=== PATIENT | female | born 1965 | race Caucasian/White ===

== ENCOUNTER 2019-12-20 10:27 | Outpatient (CLI) | payer BC, SELFPAY ==
[2019-12-20 11:44] LABS: Thyroid Stimulating Hormone 3.37 uIU/mL (0.36-3.74)
== END 2019-12-20 10:28 | disposition home or self-care (01) ==
LOC: CHSLAB 10:31
PROVIDERS: PCP Family Medicine; Visit Provider Family Medicine
DX: E03.9 Hypothyroidism, unspecified (principal)
CPT/HCPCS: 36415; 84443

== ENCOUNTER → 2020-07-08 10:10 | Outpatient (CLI) | payer BC, SELFPAY ==
--- NOTE | ~2020-07-08 | MM_ITS ---
EXAMINATION: MM screening traci BI w ángel HISTORY: Screening mammogram TECHNIQUE: Craniocaudal and mediolateral oblique 3-D tomosynthesis images were obtained and synthetic 2-D images were generated. Bilateral rotated lateral cc views. CAD analysis was submitted and interp reted. COMPARISON: 07/02/2019, 06/26/2018, 06/21/2017 bilateral digital screening mammogram examinations BREAST PARENCHYMAL COMPOSITION: The breasts are heterogeneously dense, which may obscure small masses . FINDINGS: Stable mild fibroglandular asymmetry. There is no evidence of suspicious mass, calcificatio n, or architectural distortion to suggest malignancy in either breast. There has been no suspicious i nterval change. IMPRESSION: 1. No mammographic evidence of malignancy. 2. Recommend routine screening mammography in one year. BI-RADS Category 2: Benign finding(s). Reviewed, dictated and finalized at location A.
--- NOTE | ~2020-07-08 | DEXA_ITS ---
Bone Density Report Name: Madelaine Mcgrath Age: 55 Sex: Female Ethnicity: White Date of : 1965 Indication: osteopenia; monitoring treatment; parental hip fracture; asthma or emphysema; postmenopausal Referring Provider: EL, AIDEE Study: Bone densitometry was performed. Exam Date: July 08, 2020 Accession number: [id number] Bone Density: Region BMD T-score Z-score Classification AP Spine (L1-L4) 1.086 0.4 1.5 Normal Femoral Neck (Left) 0.701 -1.3 -0.2 Osteopenia Total Hip (Left) 0.824 -1.0 -0.2 Normal Femoral Neck (Right) 0.681 -1.5 -0.4 Osteopenia Total Hip (Right) 0.779 -1.3 -0.6 Osteopenia Total Hip Mean 0.802 -1.2 -0.4 Osteopenia World Health Organization criteria for BMD impression classify patients as: Normal (T-score at or above -1.0), Osteopenia (T-score between -1.0 and -2.5), or Osteoporosis (T-score at or below -2.5). 10-year Fracture Risk: FRAX not reported because: Treated for osteoporosis Previous Exams: Region Exam Age BMD T-score BMD Change BMD Change Date g/cm2 vs Baseline vs Previous AP Spine(L1-L4) 07/08/2020 55 1.086 0.4 0.024* 0.024* 06/06/2016 50 1.063 0.1 Total Hip(Left) 07/08/2020 55 0.824 -1.0 -0.002 -0.002 06/06/2016 50 0.826 -0.9 Total Hip(Right) 07/08/2020 55 0.779 -1.3 -0.002 -0.002 06/06/2016 50 0.781 -1.3 *Denotes significance at 95% confidence level, LSC for AP Spine = 0.022 g/cm2, LSC for Total Hip = 0.027 g/cm2 Clinical Information Provided by Patient: Parent has had a hip fracture Smokes Is being treated for osteoporosis Has used the following medications: HRT (i.e. estrogen/hormone therapy), Vitamin D Has the following medical conditions: Asthma or Emphysema Patient maximum height was 66.5 Menopause Age: 50 No regular weight bearing exercise Drinks caffeinated beverages Onset of menses at age 14 Number of children 0 Impression: The patient has low bone mass, based on the Right Femoral Neck T-score. The patient has risk factors, including: parental hip fracture, smoking. No significant bone loss was observed. Discussion: PATIENT UNDER TREATMENT WITH NO SIGNIFICANT BMD LOSS SINCE LAST EXAM. In an untreated patient, BMD typically declines with age. A lack of decline or gain is usually a sign that treatment is efficacious and fracture risk is reduced. It is important to ask patients whether they are taking thei
== END ==
PROVIDERS: PCP Family Medicine; Visit Provider Nurse Practitioner
DX: Z12.31 Encounter for screening mammogram for malignant neoplasm of breast (principal); Z78.0 Asymptomatic menopausal state; M85.852 Other specified disorders of bone density and structure, left thigh; M85.851 Other specified disorders of bone density and structure, right thigh
CPT/HCPCS: 77063; 77067; 77080

== ENCOUNTER 2020-12-29 08:02 | Outpatient (CLI) | payer BC, SELFPAY | END 2020-12-29 08:03 | disposition home or self-care (01) | LOC: ANHCOVIDVC 08:02 | PROVIDERS: PCP Family Medicine | DX: Z23 Encounter for immunization (principal) | CPT/HCPCS: 0001A; 91300 ==

== ENCOUNTER 2021-01-19 07:57 | Outpatient (CLI) | payer BC, SELFPAY | END 2021-01-19 07:58 | disposition home or self-care (01) | LOC: ANHCOVIDVC 07:57 | PROVIDERS: PCP Family Medicine | DX: Z23 Encounter for immunization (principal) | CPT/HCPCS: 0002A; 91300 ==

== ENCOUNTER → 2021-07-09 09:52 | Outpatient (CLI) | payer BC, SELFPAY ==
--- NOTE | ~2021-07-09 | MM_ITS ---
EXAMINATION: MM screening traci BI w ángel HISTORY: Screening TECHNIQUE: Craniocaudal and mediolateral oblique 3-D tomosynthesis images were obtained and synthetic 2-D images were generated. CAD analysis was submitted and interpreted. COMPARISON: Comparison to multiple prior studies sequentially, with oldest reviewed study dated 06/06. BREAST PARENCHYMAL COMPOSITION: The breasts are heterogeneously dense, which may obscure small masses . FINDINGS: There is focal asymmetry with possible architectural distortion in the medial aspect of the right breast on CC view. The left breast is stable without evidence for malignancy. IMPRESSION: 1. Focal right breast asymmetry with possible architectural distortion, medial aspect of the right br east on CC view. 2. Additional mammographic views and possible breast ultrasound are recommended. BI-RADS Category 0: Incomplete: Needs additional imaging evaluation. Reviewed, dictated and finalized at location A. IMPRESSION: 1. Focal right breast asymmetry with possible architectural distortion, medial aspect of the right breast on CC view. 2. Additional mammographic views and possible breast ultrasound are recommended . BI-RADS Category 0: Incomplete: Needs additional imaging evaluation.
== END ==
PROVIDERS: PCP Family Medicine; Visit Provider Nurse Practitioner
DX: Z12.31 Encounter for screening mammogram for malignant neoplasm of breast (principal); R92.8 Other abnormal and inconclusive findings on diagnostic imaging of breast
CPT/HCPCS: 77063; 77067

== ENCOUNTER → 2021-07-09 09:53 | Outpatient (CLI) | payer BC, SELFPAY ==
--- NOTE | ~2021-07-09 | CT_ITS ---
EXAMINATION: CT lung screening DATE: 07/09/2021 10:43 INDICATION: Personal history of nicotine dependence, current smoker with 30 pack year history TECHNIQUE: Computed tomography (CT) of the chest was performed without intravenous contrast. The dose -length product (DLP) was 61.10 mGy-cm. Automated exposure control and iterative reconstruction techn ique were employed. COMPARISON: None FINDINGS: There is moderate emphysema. No suspicious pulmonary nodules are identified. The lungs are free of acute opacities. There is no pleural effusion or pneumothorax. No pathologically enlarged tho racic lymph nodes are identified. The heart size is normal. There is moderate thoracic spondylosis. IMPRESSION: 1. Lung-RADS category 1: Negative. Continue annual screening with noncontrast low-dose chest CT in 12 months. Reviewed, dictated and finalized at location A. IMPRESSION: 1. Lung-RADS category 1: Negative. Continue annual screening with noncontrast l ow-dose chest CT in 12 months.
== END ==
PROVIDERS: PCP Family Medicine; Visit Provider Family Medicine
DX: Z12.2 Encounter for screening for malignant neoplasm of respiratory organs (principal); Z87.891 Personal history of nicotine dependence
CPT/HCPCS: 71271

== ENCOUNTER → 2021-07-22 08:37 | Outpatient (CLI) | payer BC, SELFPAY ==
--- NOTE | ~2021-07-22 | MMUS_ITS ---
EXAMINATION: MM diagnostic traci RT w ángel, US breast RT complete HISTORY: Follow-up right breast asymmetry TECHNIQUE: Additional 3-D tomosynthesis images of the right breast were performed and synthetic 2-D i mages were generated. CAD analysis was submitted and interpreted. High resolution complete right terrell st ultrasound was performed. COMPARISON: 07/09/2021 BREAST PARENCHYMAL COMPOSITION: The breasts are heterogenously dense, which may obscure small masses FINDINGS: MAMMOGRAPHIC FINDINGS: There are no suspicious masses, calcifications or architectural distortion in the right breast to sug gest malignancy. ULTRASOUND: Complete right breast ultrasound: At 1:00, 5 cm from the nipple, there is a 3 mm cyst. No suspicious masses to suggest malignancy. IMPRESSION: 1. No evidence for malignancy in the right breast. 2. Routine yearly screening mammogram and regular clinical breast examination are recommended. BI-RADS Category 2: Benign finding(s). Reviewed, dictated and finalized at location A. IMPRESSION: 1. No evidence for malignancy in the right breast. 2. Routine yearly screening mammogram and regular clinical breast examination a re recommended. BI-RADS Category 2: Benign finding(s).
== END ==
PROVIDERS: Visit Provider Obstetrics & Gynecology Gynecology
DX: N60.01 Solitary cyst of right breast (principal)
CPT/HCPCS: 76641; 77061; 77065; G0279

== ENCOUNTER → 2022-07-13 09:47 | Outpatient (CLI) | payer OTHER, SELFPAY ==
--- NOTE | ~2022-07-13 | MM_ITS ---
EXAMINATION: MM screening [facility] BI w ángel HISTORY: Screening mammogram TECHNIQUE: Craniocaudal and mediolateral oblique 3-D tomosynthesis images were obtained and synthetic 2-D images were generated. CAD analysis was submitted and interpreted. COMPARISON: 07/22/2021, 07/09/2021, 07/08/2020 BREAST PARENCHYMAL COMPOSITION: There are scattered areas of fibroglandular density. FINDINGS: There is no suspicious mass, calcification, or architectural distortion to suggest malignan cy in either breast. There has been no suspicious interval change. IMPRESSION: 1. No mammographic evidence of malignancy. 2. Recommend routine screening mammography in one year. BI-RADS Category 1: Negative Reviewed, dictated and finalized at location D.
== END ==
PROVIDERS: PCP Family Medicine; Visit Provider Nurse Practitioner
DX: Z12.31 Encounter for screening mammogram for malignant neoplasm of breast (principal)
CPT/HCPCS: 77063; 77067

== ENCOUNTER 2022-07-28 08:29 | Outpatient (CLI) | payer OTHER, SELFPAY ==
--- NOTE | 2022-07-28 11:00 | NEURO_ITS ---
IMPRESSION: # Complains of numbness of hands.Pt is. Not diabetic. # Subtle left ulnar neuropathy across the elbow. # Normal needle exam. # Clincal correlation recommended Nerve Conduction Studies Anti Sensory Summary Table Stim Site NR Peak (ms) P-T Amp (?V) Site1 Site2 Delta-P (ms) Dist (cm) Maurice (m/s) Left Median Anti Sensory (2-3nd Digit) Wrist 3.4 33.9 Wrist 2-3nd Digit 3.4 14.0 41 Wrist 3.3 72.0 Wrist 2-3nd Digit 3.4 14.0 41 Right Median Anti Sensory (2-3nd Digit) Wrist 3.0 61.4 Wrist 2-3nd Digit 3.0 14.0 47 Wrist 3.2 44.8 Wrist 2-3nd Digit 3.0 14.0 47 Left Radial Anti Sensory (Base 1st Digit) Wrist 2.1 22.4 Wrist Base 1st Digit 2.1 0.0 Right Radial Anti Sensory (Base 1st Digit) Wrist 3.0 9.6 Wrist Base 1st Digit 3.0 0.0 Left Ulnar Anti Sensory (5th Digit) Wrist 2.8 97.5 Wrist 5th Digit 2.8 14.0 50 Right Ulnar Anti Sensory (5th Digit) Wrist 3.0 45.3 Wrist 5th Digit 3.0 14.0 47 Motor Summary Table Stim Site NR Onset (ms) O-P Amp (mV) Site1 Site2 Delta-0 (ms) Dist (cm) Maurice (m/s) Left Median Motor (Abd Poll Brev) Wrist 3.5 3.5 Elbow Wrist 4.5 27.0 60 Elbow 8.0 4.0 Right Median Motor (Abd Poll Brev) Wrist 3.4 3.6 Elbow Wrist 4.8 26.0 54 Elbow 8.2 3.5 Left Ulnar Motor (Abd Dig Minimi) Wrist 2.8 6.2 A Elbow Wrist 5.1 27.0 53 A Elbow 7.9 5.2 B Elbow Wrist 4.0 22.0 55 B Elbow 6.8 4.7 Right Ulnar Motor (Abd Dig Minimi) Wrist 3.3 6.8 A Elbow Wrist 4.8 27.0 56 A Elbow 8.1 6.2 F Wave Studies NR F-Lat (ms) L-R F-Lat (ms) Left Median (Mrkrs) (Abd Poll Brev) 28.91 0.86 Right Median (Mrkrs) (Abd Poll Brev) 28.05 0.86 Left Ulnar (Mrkrs) (Abd Dig Min) 29.83 3.74 Right Ulnar (Mrkrs) (Abd Dig Min) 26.09 3.74 EMG Side Muscle Nerve Root Ins Act Fibs Amp Dur Recrt Comment Right 1stDorInt Ulnar C8-T1 Nml Nml Nml Nml Nml Right Ext Indicis Radial (Post Int) C7-8 Nml Nml Nml Nml Nml Right Ext Digitorum Radial (Post Int) C7-8 Nml Nml Nml Nml Nml Right BrachioRad Radial C5-6 Nml Nml Nml Nml Nml Right PronatorTeres Median C6-7 Nml Nml Nml Nml Nml Right Abd Poll Brev Median C8-T1 Nml Nml Nml Nml Nml Left 1stDorInt Ulnar C8-T1 Nml Nml Nml Nml Nml Left Ext Indicis Radial (Post Int) C7-8 Nml Nml Nml Nml Nml Left Ext Digitorum Radial (Post Int) C7-8 Nml Nml Nml Nml Nml Left BrachioRad Radial C5-6 Nml Nml Nml Nml Nml Left PronatorTeres Median C6-7 Nml Nml Nml Nml Nml Left Abd Poll Brev Median C8-T1 Nml Nml Nml Nml Nml MTDD
== END 2022-07-28 08:30 | disposition home or self-care (01) ==
PROVIDERS: PCP Family Medicine; Visit Provider Family Medicine
DX: R25.2 Cramp and spasm (principal); G56.22 Lesion of ulnar nerve, left upper limb
CPT/HCPCS: 95886; 95911

== ENCOUNTER → 2022-09-01 10:54 | Outpatient (CLI) | payer OTHER, SELFPAY ==
--- NOTE | ~2022-09-01 | XR_ITS ---
EXAMINATION: XR chest 2V DATE: 09/01/2022 11:04 INDICATION: Pneumonia, unspecified TECHNIQUE: Frontal and lateral views of the chest are obtained COMPARISON: 07/25/2017 FINDINGS: The lungs are free of acute opacities. No pleural effusion or pneumothorax. The cardiomedia stinal silhouette is normal. There is moderate thoracic spondylosis. IMPRESSION: 1. No acute cardiopulmonary abnormality. Reviewed, dictated and finalized at location B. [employer]
== END ==
PROVIDERS: PCP Family Medicine; Visit Provider Family Medicine
DX: J18.9 Pneumonia, unspecified organism (principal)
CPT/HCPCS: 71046

== ENCOUNTER 2022-11-10 19:13 | Outpatient (NON) | payer OTHER, SELFPAY | END 2022-11-10 19:14 | disposition home or self-care (01) | LOC: ANHLAB 19:14 | PROVIDERS: PCP Family Medicine; Visit Provider Family Medicine | DX: Z22.322 Carrier or suspected carrier of Methicillin resistant Staphylococcus aureus (principal) | CPT/HCPCS: 87081 ==

== ENCOUNTER 2023-04-23 09:46 | Emergency (ER) | payer OTHER, SELFPAY ==
[2023-04-23 09:46] VITALS: BP 152/83; PULSE 100; RESP 18; TEMP 36.6; O2SAT 97
--- NOTE | 2023-04-23 09:59 | ED.SKABFB ---
HPI - Skin/Abscess/Foreign Bdy General Chief complaint: Skin/Abscess/Foreign Body Stated complaint: rash since monday Time Seen by Provider: 04/23/23 09:54 Source: patient and RN notes reviewed Mode of arrival: ambulatory Limitations: no limitations History of Present Illness complaint: rash Onset (ago): day(s) (4) Location: generalized Severity: moderate Quality: burning, dull and constant Pain Consistency: constant Relieving factors: none Exacerbating factors: none Context: none Associated symptoms: denies other symptoms Treatments prior to arrival: Benadryl (no help) Related Data Home Medications Medication Instructions Recorded Confirmed estradiol 1 mg-progesterone 100 mg 1 cap PO QPM 08/16/22 04/23/23 capsule multivitamin with minerals-folic 1 tablet PO DAILY 08/16/22 04/23/23 acid 200 mcg chewable tablet (Multivitamin Gummies) Allergies Allergy/AdvReac Type Severity Reaction Status Date / Time doxycycline Allergy Unknown Nausea Verified 11/10/22 10:53 varenicline [From Chantix] AdvReac Intermediate weight gain Verified 11/10/22 10:53 Review of Systems Review of Systems: All systems reviewed & are unremarkable except as noted in HPI and below PMFSH Past Medical History Medical History Allergic contact dermatitis, unspecified cause (02/19/19) Allergies Muscle cramps Pre-syncope Spasm of right piriformis muscle Torsion of ovary, ovarian pedicle and fallopian tube Surgical History Surgical History History of elbow surgery Dr Augustin [address] of hand surgery [address] Augustin 2014 History of repair of left rotator cuff Dr Justice 2015 Family History Family History Mother Dementia Alzheimer disease Father Dementia Social History Social History Smoking packs per day: 0.5 Smoking cigarettes per day: 10.0 Years smoked: 30 Smoking pack-years: 15.00 Smoking status: Current every day smoker Alcohol intake: never Substance use type: does not use Lack of Transportation: No Lack of Food: Never True Current Housing: I Have Housing Concerned About Future Housing: No Difficulty Paying Gas/Electric Bills: No Difficulty Paying for Meds: No Currently Unemployed: No Education: High School Diploma/GED Difficulty w/ Childcare or Family Care: No Living arrangements: with family Occupation/Education: occupation 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 Exam Const: General: healthy appearing, no acute distress and alert Nutritional Appearance: well nourished Orientation/consciousness: patient oriented x3 Limitations: no limitations HENMT: Head: normal to inspection Ears: external ears normal Face/Nose/Sinus: Normal external nose present Face and sinus: normal facial exam Mouth: Yes moist mucous membranes Eyes: Conjunctivae: conjunctivae normal Pupils: Equal, round and reactive pupils present EOM: EOMs intact bilaterally Neck: Neck: normal visual inspection Resp: Effort & Inspection: normal respiratory effort Auscultation: clear to auscultation bilaterally Cardio: Rate: regular rate Rhythm: regular rhythm GI: Auscultation: normal bowel sounds Back/Spine/Pelvis: Cervical Spine: cervical ROM normal Thoracic/Lumbar Spine: thoraco-lumbar ROM normal Skin: General skin exam: normal color Rashes: rashes noted vesicles diffuse multiple locations arrangement linear, color red and morphology Neuro: General: patient oriented x3, moves all extremities, no focal motor deficits and CN's II-XI intact bilaterally Speech: normal speech Gait exam (Neuro): Normal gait present Extrem: General: normal to inspection and no clubbing, cyanosis or edema Psych: Mental Status: mental status grossly normal Affect: normal affe
[2023-04-23] MEDS: methylPREDNISolone SOD SUCC 125 MG VIAL IM (10:16)
[2023-04-23 10:24] VITALS: BP 113/76; PULSE 73; RESP 20; O2SAT 96
== END 2023-04-23 10:25 | disposition home or self-care (01) ==
PROVIDERS: Emergency Provider Emergency Medicine; PCP Family Medicine
DX: L23.7 Allergic contact dermatitis due to plants, except food (principal); F17.210 Nicotine dependence, cigarettes, uncomplicated
CPT/HCPCS: 96372; 99283; J2930

== ENCOUNTER → 2023-07-18 10:17 | Outpatient (CLI) | payer OTHER, SELFPAY ==
--- NOTE | ~2023-07-18 | MM_ITS ---
EXAMINATION: MM screening traci BI w ángel HISTORY: Screening mammogram TECHNIQUE: Craniocaudal and mediolateral oblique 3-D tomosynthesis images were obtained and synthetic 2-D images were generated. CAD analysis was submitted and interpreted. COMPARISON: 07/13/2022 bilateral screening mammogram 07/22/2021 diagnostic right mammogram and complete right breast ultrasound 07/09/2021, 07/08/2020 bilateral screening mammogram examinations BREAST PARENCHYMAL COMPOSITION: The breasts are heterogeneously dense, which may obscure small masses . FINDINGS: There is no evidence of suspicious mass, calcification, or architectural distortion to sugg est malignancy in either breast. There has been no suspicious interval change. IMPRESSION: 1. No mammographic evidence of malignancy. 2. Recommend routine screening mammography in one year. BI-RADS Category 1: Negative Reviewed, dictated and finalized at location A.
== END ==
PROVIDERS: PCP Family Medicine; Visit Provider Advanced Practice Midwife
DX: Z12.31 Encounter for screening mammogram for malignant neoplasm of breast (principal)
CPT/HCPCS: 77063; 77067

== ENCOUNTER → 2023-08-10 10:45 | Outpatient (CLI) | payer OTHER, SELFPAY ==
--- NOTE | ~2023-08-10 | DEXA_ITS ---
Bone Density Report Name: RAHEEL BURKETT Age: 58 Sex: Female Ethnicity: White Date of : 1965 Indication: osteopenia; parental hip fracture; height loss; asthma or emphysema; postmenopausal Referring Provider: LIZA LEWIS Study: Bone densitometry was performed. Exam Date: August 10, 2023 Accession number: [id number] Bone Density: Region BMD T-score Z-score Classification AP Spine (L1-L4) 1.094 0.4 1.8 Normal Femoral Neck (Left) 0.752 -0.9 0.4 Normal Total Hip (Left) 0.846 -0.8 0.1 Normal Femoral Neck (Right) 0.680 -1.5 -0.3 Osteopenia Total Hip (Right) 0.779 -1.3 -0.4 Osteopenia Total Hip Mean 0.813 -1.1 -0.2 Osteopenia World Health Organization criteria for BMD impression classify patients as: Normal (T-score at or above -1.0), Osteopenia (T-score between -1.0 and -2.5), or Osteoporosis (T-score at or below -2.5). 10-year Fracture Risk(1): Major Osteoporotic Fracture 15% Hip Fracture 1.2% Reported Risk Factors: [place] (), Neck BMD=0.680, BMI=27.1, parental fracture, smoking (1) FRAX(R) Version 3.08. Fracture probability calculated for an untreated patient. Fracture probability may be lower if the patient has received treatment. Previous Exams: Region Exam Age BMD T-score BMD Change BMD Change Date g/cm2 vs Baseline vs Previous AP Spine(L1-L4) 08/10/2023 58 1.094 0.4 0.032* 0.008 07/08/2020 55 1.086 0.4 0.024* 0.024* 06/06/2016 50 1.063 0.1 Total Hip(Left) 08/10/2023 58 0.846 -0.8 0.019 0.022 07/08/2020 55 0.824 -1.0 -0.002 -0.002 06/06/2016 50 0.826 -0.9 Total Hip(Right) 08/10/2023 58 0.779 -1.3 -0.002 0.000 07/08/2020 55 0.779 -1.3 -0.002 -0.002 06/06/2016 50 0.781 -1.3 *Denotes significance at 95% confidence level, LSC for AP Spine = 0.022 g/cm2, LSC for Total Hip = 0.027 g/cm2 Clinical Information Provided by Patient: Parent has had a hip fracture Smokes Has used the following medications: HRT (i.e. estrogen/hormone therapy), Vitamin D, Calcium, ALBUTEROL, TYROID MEDICATION Has the following medical conditions: Asthma or Emphysema Patient maximum height was 66.5 Menopause Age: 50 No regular weight bearing exercise Drinks caffeinated beverages Onset of menses at age 14 Number of children 0 Impression: The patient has low bone mass, based on t
== END ==
PROVIDERS: PCP Family Medicine; Visit Provider Advanced Practice Midwife
DX: M85.89 Other specified disorders of bone density and structure, multiple sites (principal); Z78.0 Asymptomatic menopausal state
CPT/HCPCS: 77080

== ENCOUNTER 2024-05-23 08:07 | Outpatient (CLI) | payer OTHER, SELFPAY ==
--- NOTE | ~2024-05-23 | MR_ITS ---
EXAMINATION: MR hip RT wo con DATE: 05/23/2024 09:16 INDICATION: Right hip pain. TECHNIQUE: Magnetic resonance imaging (MRI) of the right hip was performed without intravenous contra st. COMPARISON: Right hip radiographs 05/20/2024 FINDINGS: Bones/cartilage: There is 4 degrees levocurvature of lumbar spine. The femoral head/neck morphologies are normal. The hips demonstrate tiny osteophytes. Small [id number] images of right hip demonstrates partial-thick ness cartilage loss, deep anteriorly. There are subchondral cysts in the anterior right acetabulum. Labrum: There is a tear of right glenoid labrum anteriorly. Fluid: There is a right hip joint effusion. There is mild bilateral trochanteric bursitis. Soft tissues: There is mild tendinopathy of the hamstring origins bilaterally. The iliopsoas tendons are normal. Th e gluteal tendons are intact. IMPRESSION: 1. Moderate right hip chondrosis. Right acetabular labral tear. 2. Right hip joint effusion. Reviewed, dictated and finalized at location A.
== END 2024-05-23 08:08 ==
LOC: GOSHIMG 08:08
PROVIDERS: PCP Physician Assistant Surgical; Visit Provider Physician Assistant Surgical
DX: M25.451 Effusion, right hip (principal)
CPT/HCPCS: 73721

== ENCOUNTER 2024-07-01 13:04 | Outpatient (CLI) | payer OTHER, SELFPAY ==
--- NOTE | ~2024-07-01 | CT_ITS ---
EXAMINATION: CT lung screening DATE: 07/01/2024 13:26 INDICATION: screenng TECHNIQUE: Computed tomography (CT) of the chest was performed without intravenous contrast. Addition al 3D reconstructions utilizing coronal maximum intensity projection (MIP) were performed. Automated exposure control and iterative reconstruction technique were employed. The dose-length product was 65 .01 mGy-cm. COMPARISON: 07/09/2021 FINDINGS: Calcified nodule at the anterobasilar left lower lobe consistent with old granulomatous disease. No o ther suspicious pulmonary nodules, pneumonia, pulmonary edema or pleural effusion. Heart size is norm al. Small pericardial effusion. Thoracic aorta is normal in caliber. No pathologically enlarged thora cic lymphadenopathy. 6 mm nonobstructing stone at the upper pole of the right kidney. Visualized uppe r abdomen is otherwise unremarkable. Moderate thoracic spondylosis. IMPRESSION: 1. Lung-RADS category 1: Negative. Continue annual screening with noncontrast low-dose chest CT in 12 months. Reviewed, dictated and finalized at location B. IMPRESSION: 1. Lung-RADS category 1: Negative. Continue annual screening with noncontrast l ow-dose chest CT in 12 months.
== END 2024-07-01 13:05 | disposition home or self-care (01) ==
LOC: MICIMG 13:05
PROVIDERS: PCP Family Medicine; Visit Provider Family Medicine
DX: Z12.2 Encounter for screening for malignant neoplasm of respiratory organs (principal); F17.210 Nicotine dependence, cigarettes, uncomplicated
CPT/HCPCS: 71271

== ENCOUNTER 2024-07-02 14:27 | Outpatient (CLI) | payer OTHER, SELFPAY ==
--- NOTE | ~2024-07-02 | US_ITS ---
EXAMINATION: US arterial ankle brachial ind DATE: 07/02/2024 15:21 INDICATION: Tingling and numbness of the feet. Nicotine dependence, unspecified, uncomplicated. TECHNIQUE: Segmental pressures and plethysmographic and Doppler waveforms of the brachial and lower e xtremity arteries were obtained. COMPARISON: None. FINDINGS: Right and left brachial artery pressures of 97 mm Hg and 106 mm Hg, respectively, are concordant (nor mal difference <= 30 mmHg). The right ankle-brachial index (BRAD) is 1.41 (normal >= 0.9-1.0). The right great toe-brachial index (TBI) is 0.94 (normal >= 0.65). Arterial Doppler waveforms are biphasic at the ankle. The left BRAD is 1.30. The left TBI is 0.96. Arterial Doppler waveforms are biphasic at the ankle. IMPRESSION: 1. No significant arterial occlusive disease. Reviewed, dictated and finalized at location A.
== END 2024-07-02 14:28 | disposition home or self-care (01) ==
PROVIDERS: PCP Family Medicine; Visit Provider Family Medicine
DX: R09.89 Other specified symptoms and signs involving the circulatory and respiratory systems (principal); F17.200 Nicotine dependence, unspecified, uncomplicated; M79.606 Pain in leg, unspecified
CPT/HCPCS: 93922

== ENCOUNTER 2024-07-23 09:57 | Outpatient (CLI) | payer OTHER, SELFPAY ==
--- NOTE | ~2024-07-23 | MM_ITS ---
EXAMINATION: MM screening traci BI w ángel HISTORY: Screening TECHNIQUE: Craniocaudal and mediolateral oblique 3-D tomosynthesis images were obtained and synthetic 2-D images were generated. CAD analysis was submitted and interpreted. COMPARISON: Comparison to multiple prior studies sequentially, with oldest reviewed study dated 07/02. BREAST PARENCHYMAL COMPOSITION: Dense: The breasts are heterogeneously dense, which may obscure small masses FINDINGS: There is no evidence of suspicious mass, calcification, or architectural distortion to sugg est malignancy in either breast. There has been no suspicious interval change. IMPRESSION: 1. No mammographic evidence of malignancy. 2. Recommend routine screening mammography in one year. BI-RADS Category 1: Negative Reviewed, dictated and finalized at location B.
== END 2024-07-23 09:58 | disposition home or self-care (01) ==
LOC: MICIMG 09:58
PROVIDERS: PCP Family Medicine; Visit Provider Family Medicine
DX: Z12.31 Encounter for screening mammogram for malignant neoplasm of breast (principal)
CPT/HCPCS: 77063; 77067

== ENCOUNTER 2024-08-01 09:45 | Outpatient (CLI) | payer OTHER, SELFPAY ==
--- NOTE | 2024-08-01 10:46 | ECG_ITS ---
Test Date: 2024-08-01 10:55:05 Measurements Intervals [place] Rate: 69 P: 6 TN: 139 QRS: 50 QRSD: 76 T: 52 QT: 397 QTc: 427 Interpretive Statements SINUS RHYTHM WITHIN NORMAL LIMITS No previous ECG available for comparison Electronically Signed On 08-01-2024 16:07:11 CDT by Erasmo Calderon M.D.
[2024-08-01 11:07] LABS: Basophils Absolute Auto 0.1 K/mm3 (0.0-0.1); Basophils Percent Auto 1.3 % (0.2-1.2); Eosinophils Absolute Auto 0.3 K/mm3 (0-0.3); Eosinophils Percent Auto 4.7 % (0-4.4); Hematocrit 39.6 % (37.0-47.0); Hemoglobin 13.5 g/dL (12.0-15.0); Immature Granulocyte Absolute 0.02 K/mm3 (0.00-0.031); Immature Granulocyte Percent A 0.3 % (0-0.5); Lymphocytes Absolute Auto 2.22 K/mm3 (0.9-3.2); Lymphocytes Percent Auto 32.9 % (18.3-44.2); Mean Corpuscular HGB Conc 34.1 g/dl (32-36); Mean Corpuscular Hemoglobin 31.3 pg (26-34); Mean Corpuscular Volume 91.7 fl (80-100); Mean Platelet Volume 9.3 fl (7.4-10.4); Monocytes Absolute Auto 0.5 K/mm3 (0.1-0.6); Monocytes Percent Auto 7.6 % (2.6-8.5); Neutrophils Absolute Auto 3.6 K/mm3 (1.3-6.7); Neutrophils Percent Auto 53.2 % (45.5-73.1); Platelet Count Result 303 k/mm3 (150-375); Red Blood Count 4.32 M/mm3 (4.2-5.4); Red Cell Distribution Width 12.3 % (11.5-14.5); White Blood Count 6.8 K/mm3 (4.5-10.0)
[2024-08-01 11:16] LABS: Albumin Level 4.1 g/dL (3.5-5.1); Anion Gap 7 mmol/L (4-12); Blood Urea Nitrogen 12 mg/dL (7-17); Calcium 9.1 mg/dL (8.4-10.2); Carbon Dioxide 29 mmol/L (22-30); Chloride 104 mmol/L (98-107); Estimated Glomerular Filt Rate > 60; Glucose 83 mg/dL (65-110); Potassium 4.3 mmol/L (3.4-5.0); Sodium 140 mmol/L (137-145)
[2024-08-01 11:19] LABS: Urine Cotinine NEGATIVE
[2024-08-01 12:06] LABS: Hemoglobin A1C 5.3 % (<5.7)
== END 2024-08-01 09:46 | disposition home or self-care (01) ==
LOC: ANHSURGERY 09:50
PROVIDERS: PCP Family Medicine; Visit Provider Orthopaedic Surgery
DX: M16.11 Unilateral primary osteoarthritis, right hip (principal); Z01.818 Encounter for other preprocedural examination
CPT/HCPCS: 80048; 80307; 82040; 83036; 85025; 86850; 86900; 86901; 87081; 93005

== ENCOUNTER 2024-08-06 07:11 | Outpatient (CLI) | payer OTHER, SELFPAY ==
--- NOTE | ~2024-08-06 | NM_ITS ---
EXAMINATION: NM robi stress w perfusion DATE: 08/06/2024 09:11 INDICATION: Emphysema. Nicotine dependence. TECHNIQUE: Rest images were obtained following intravenous administration of 11 mCi Tc99m tetrofosmin (Myoview). The patient was infused intravenously with Lexiscan (Regadenoson). Then, 35 mCi Tc99m tet rofosmin (Myoview) was administered intravenously, and stress images were obtained. Data was reconstr ucted into short axis and horizontal and vertical long axis SPECT images. Gated SPECT images were als o obtained. COMPARISON: None. FINDINGS: There is no definite reversible or fixed perfusion abnormality to suggest ischemia or infar ction. There is normal left ventricular chamber size, wall motion and ejection fraction. Left ventr icular ejection fraction measures >70%. IMPRESSION: 1. Normal myocardial perfusion at rest and during stress. 2. Left ventricular ejection fraction measuring >70%. Reviewed, dictated and finalized at location A.
--- NOTE | 2024-08-06 07:59 | EST_ITS ---
Patient Info Name: Madelaine Mcgrath Age: 59 years : 1965 Gender: Female Ht: 66 in Wt: 165 lbs BSA: 1.88 m2 HR: 75 bpm BP: 146 / 86 mmHg Heart Rhythm: Sinus Rhythm Exam Date: 08/06/2024 8:28 AM Exam Location: Echo Lab Patient Status: Outpatient Admit Date: 08/06/2024 Staff Ordering Physician: oFzia Salazar MD Attending Provider: Fozia Salazar MD Exercise Technologist: Breanna Rousseau CT Exercise Physician: Pepe Fisher DO Exam Type: CA stress robi w NM Study Info Indications R06.02 - Shortness of breath Z01.810 - Encounter for preprocedural cardiovascular examination A regadenoson stress test was performed. Summary 1. 1. Negative lexiscan stress test for ischemic ST changes by ECG criteria. 2. 2. Stable hemodynamics throughout the test. 3. 3. Nuclear scan to follow and will be reported separately. Please correlate with it. 4. 4. Patient informed of the above results. Protocol: Lexiscan Stress ECG Details Stage: REST Duration (min): 0 min : 57 sec HR (bpm): 79 SBP (mmHg): 128 DBP (mmHg): 90 Stage: REST Duration (min): 6 min : 9 sec HR (bpm): 80 SBP (mmHg): 128 DBP (mmHg): 90 Stage: STAGE 1 Duration (min): 0 min : 59 sec HR (bpm): 119 SBP (mmHg): 149 DBP (mmHg): 86 Stage: RECOVERY Duration (min): 1 min : 0 sec HR (bpm): 109 SBP (mmHg): 149 DBP (mmHg): 86 Stage: RECOVERY Duration (min): 2 min : 0 sec HR (bpm): 106 SBP (mmHg): 149 DBP (mmHg): 86 Stage: RECOVERY Duration (min): 3 min : 0 sec HR (bpm): 96 SBP (mmHg): 135 DBP (mmHg): 83 Stage: RECOVERY Duration (min): 3 min : 24 sec HR (bpm): 101 SBP (mmHg): 135 DBP (mmHg): 83 Stage: RECOVERY Duration (min): 4 min : 0 sec HR (bpm): --- SBP (mmHg): 135 DBP (mmHg): 83 Stage: RECOVERY Duration (min): 5 min : 0 sec HR (bpm): --- SBP (mmHg): 135 DBP (mmHg): 83 Stage: RECOVERY Duration (min): 5 min : 16 sec HR (bpm): --- SBP (mmHg): 135 DBP (mmHg): 83 Rest HR: 80 bpm Peak HR: 120 bpm Rest Sys BP: 128 mmHg Peak Sys BP: 149 mmHg Max Pred HR: 160 bpm % Max Pred HR: 75 % Target HR: 136 bpm Max RPP: 17,880 bpm*mmHg Termination Reason: Completed protocol Cardiac Symptoms: Shortness of breath Total Time: 1 min : 0 sec Rest [place] BP: 90 mmHg Peak [place] BP: 86 mmHg Total Dose: 0.4 mg Resting ECG Sinus rhythm. Stress ECG No ST changes. Arrhythmias None. Report Signatures
== END 2024-08-06 07:12 | disposition home or self-care (01) ==
LOC: ANHCARD 07:14
PROVIDERS: PCP Family Medicine; Visit Provider Family Medicine
DX: J43.9 Emphysema, unspecified (principal); F17.200 Nicotine dependence, unspecified, uncomplicated; Z01.818 Encounter for other preprocedural examination
CPT/HCPCS: 78452; 93017; A9502; J2785

== ENCOUNTER 2024-08-12 01:26 | Day surgery (SDC) | payer OTHER, SELFPAY ==
[2024-08-01 09:54] VITALS: BMI 26.6
--- NOTE | 2024-08-01 10:25 | PC.NURSE ---
Report to the Outpatient Waiting Room, entrance under the green pavilion located off [facility], at time __6 am on date _08/12/24 . Planned Procedure Time: _7:30 am .? Time changes happen often and if your time is changed the preop area will call you the afternoon before. - You and your visitor will be asked to self-screen and do not enter if you have any COVID symptoms. Please call surgeon if you need to reschedule. - A mask is optional within the hospital at this time. Patients may have clear liquids (water, carbonated beverages, clear teas, apple juice) until 3 hours prior to surgery ( 4:30 am)with a maximum of 20 ounces. - No food from midnight until time of surgery and no smoking - Infants may have breast milk until 4 hours before surgery, infant formula 6 hours prior to surgery. - Children will be allowed to drink immediately following surgery.? If applicable, please bring a bottle or sippy cup to assist with drinking. Juice, water, soda, and popsicles are readily available.? For infants on formula, please bring formula the day of surgery.? Pacifiers are allowed. Take only the following medications with a SIP of water on the morning of surgery: inhaler if needed,gabapentin,levothyroxine DO NOT STOP ANY OF YOUR OTHER PRESCRIPTION MEDICATIONS PRIOR TO SURGERY EXCEPT THE FOLLOWING Medications to discontinue per physician ____hold diclofenac 7 days pre op per dr merino last dose 08/04/24 . hold all vitamins and supplements 3 days pre op.last dose08/08/24 Please no make-up, nail andorran, hairspray, perfume, deodorant, or body powder the day of surgery.? No jewelry (including any body piercings) or valuables the day of surgery, leave them at home.? Please take a shower or bath the night before, or the morning of, surgery with an antibacterial soap.? Wear comfortable, loose fitting clothing.? Children are encouraged to wear pajamas. - Jewelry must be removed prior to entering the operating room.? Rings and piercings that are not removed may be cut off. - The hospital will not accept responsibility for valuables.? - Please leave all valuables, including medications, at home the day of surgery. If you are going home after surgery, a licensed ambulance driver must drive you home.? - NO public transportation without another adult if you receive anesthesia. - We recommend that an adult stay with you for 24 hours following discharge. - We also recommend that you do not drive, make important decision, drink alcoholic beverages, or take any drugs that were not prescribed by your health care provider for at least 24 hours after your discharge time. Follow any additional instructions given to you from your surgeon. verbal and written instructions given to __PATIENT and asked if any additional questions and then verbalized understanding. Patient advised to call surgeon office or pre surgery nurse liaison [phone] if any additional questions.
[2024-08-01 10:44] VITALS: BP 133/88; PULSE 83; RESP 18; TEMP 36.7; O2SAT 100
--- NOTE | 2024-08-09 08:32 | PM.IMHP ---
H&P: HPI History of Present Illness Date/Time: 08/09/24 08:32 Chief Complaint: Right hip DJD Narrative: 59-year-old female patient of Dr. Salazar who presents today for a right anterior total hip arthroplasty. Patient started having symptoms in her hip in April of this year. She was climbing into a jeep when she felt a pop in her hip. Since that time she has had continued symptoms in the right hip predominantly in the groin especially with weight-bearing or activities. She did use a walker for short period of time she has been on diclofenac 75 mg b.i.d.. This is not improved her symptoms. She has had an MRI scan of the right hip which demonstrated prominent subchondral cyst in the anterior superior acetabulum and diffuse bony edema around the cyst. She also has high grade cartilage loss in the hip itself. At this point patient has failed conservative measures to try to improve the symptoms in her right hip. Total hip arthroplasty was discussed with her and she feels that her symptoms are severe enough that she would like to proceed with that. Review of Systems Review of Systems: All systems reviewed & are unremarkable except as noted in HPI and below PMFSH Past Medical History Medical History Actinic keratosis Allergic contact dermatitis, unspecified cause (02/19/19) Allergies Autoimmune thyroiditis (07/04/19) Cellulitis of pubic region MRSA MRSA (methicillin resistant staph aureus) culture positive Muscle wasting and atrophy, not elsewhere classified, unspecified hand Pneumonia Pre-syncope Spasm of right piriformis muscle Torsion of ovary, ovarian pedicle and fallopian tube Surgical History Surgical History History of elbow surgery Dr Augustin [address] surgery [address] Augustin 2014 History of repair of left rotator cuff Dr Justice 2015 Family History Family History Mother Dementia Alzheimer disease Father Dementia Sibling No problems noted. Social History Social History (Updated 07/24/24 @ 07:49 by Laina Aguilar CMA) Smoking packs per day: 0.5 Smoking cigarettes per day: 10.0 Years smoked: 43 Smoking pack-years: 21.50 Smoking status: Former smoker Tobacco type: cigarettes Second hand tobacco smoke exposure: Yes Smoking end date: 07/01/24 Additional smoking assessment comments: DENIES ANY FORM OF TOBACCO USE Alcohol intake: never Substance use: never Substance use type: does not use Do You Feel Safe in your Home?: Yes Lack of Transportation: No Lack of Food: Never True Current Housing: I Have Housing Concerned About Future Housing: No Difficulty Paying Gas/Electric Bills: No Difficulty Paying for Meds: No Currently Unemployed: YES Education: High School Diploma/GED Difficulty w/ Childcare or Family Care: No Living arrangements: with family Occupation/Education: retired 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[employer] Gender identity (if verbalized by the patient): Female Spiritual care concerns: No Meds Home Medications and Allergies Home Medications Medication Instructions Recorded Confirmed Type multivitamin with minerals-folic 1 tablet PO DAILY 08/16/22 08/01/24 History acid 200 mcg chewable tablet (Multivitamin Gummies) albuterol sulfate 90 mcg/actuation See Rx Instructions .Route 08/14/23 08/01/24 Rx aerosol inhaler .COMPLEX #90 grams omeprazole 40 mg capsule,delayed 40 mg PO DAILY #90 caps 02/22/24 08/01/24 Rx release levothyroxine 75 mcg tablet 75 mcg PO DAILY #90 tabs 05/20/24 08/01/24 Rx cholecalciferol (vitamin D3) 125 125 mcg PO DAILY 06/27/24 08/01/24 History mcg (5,000 unit) capsule gabapentin 300 mg capsule See Rx Instructions PO QHS #90 caps 06/27/24 08/01/24 Rx dicl
[2024-08-12] VITALS (15 sets, daily range): BP systolic 94–128; BP diastolic 50–76; PULSE 82–109; RESP 12–20; TEMP 35.8–36.9; O2SAT 93–100
--- NOTE | ~2024-08-12 | XR_ITS ---
Indication: Right total hip arthroplasty TECHNIQUE: Fluoroscopy used during right total hip arthroplasty performed by [Griselda Briones]. No fluoroscopic images captured. 61 seconds of fluoroscopy. FINDINGS: Correlate with procedure note. IMPRESSION: Fluoroscopy used during right total hip arthroplasty. Reviewed, dictated and finalized at location B.
--- NOTE | ~2024-08-12 | XR_ITS ---
EXAMINATION: XR hip RT 1V w AP pelvis DATE: 08/12/2024 11:11 INDICATION: Right hip arthroplasty TECHNIQUE: 2 views right hip FINDINGS: There is a right total hip arthroplasty in expected position. Subcutaneous gas with soft t issue swelling are consistent with recent surgery. There is osteonecrosis of the left femoral head. IMPRESSION: 1. Recent right total hip arthroplasty. 2: Osteonecrosis of the left femoral head. Reviewed, dictated and finalized at location B.
[2024-08-12] MEDS: ACETAMINOPHEN 500 MG TABLET 1000 MG PO (06:30)
[2024-08-12] MEDS: TRANEXAMIC ACID 1,000MG/ISO100 1,000 MG/100 ML BAG 200 MG IVPB (06:35)
[2024-08-12] MEDS: VANCOMYCIN 1,000 MG/NS 250 ML BAG 250 MG IVPB (06:35)
[2024-08-12] MEDS: LACTATED RINGERS 1,000 ML 30 ML IV CONT ×2 (06:35→11:10)
--- NOTE | 2024-08-12 06:55 | WPDANESEPPF ---
Anes - Initial Pre Proc Eval Procedure: Operation Date: 08/12/24 07:30 Proposed Procedures p Right Total Hip Arthroplasty, Direct Anterior Approach - Chao Haley MD Date/Time: 08/12/24 06:55 Surgeon: Chao Haley MD Pre Op Diagnosis: OA right hip Patient Data Age: 59 Gender: F Height: 1.68 m Weight: 75 kg Last Vital Signs Temp 97.8 F 08/12/24 06:15 Pulse 102 H 08/12/24 06:15 Resp 16 08/12/24 06:15 BP 95/68 L 08/12/24 06:15 Pulse Ox 98 08/12/24 06:15 O2 Del Method Room Air 08/12/24 06:15 Allergies Allergy/AdvReac Type Severity Reaction Status Date / Time No Known Allergies Allergy Verified 08/12/24 06:46 Home Medications Medication Instructions Recorded Confirmed Type multivitamin with minerals-folic 1 tablet PO DAILY 08/16/22 08/01/24 History acid 200 mcg chewable tablet (Multivitamin Gummies) albuterol sulfate 90 mcg/actuation See Rx Instructions .Route 08/14/23 08/01/24 Rx aerosol inhaler .COMPLEX #90 grams omeprazole 40 mg capsule,delayed 40 mg PO DAILY #90 caps 02/22/24 08/01/24 Rx release levothyroxine 75 mcg tablet 75 mcg PO DAILY #90 tabs 05/20/24 08/01/24 Rx cholecalciferol (vitamin D3) 125 125 mcg PO DAILY 06/27/24 08/01/24 History mcg (5,000 unit) capsule gabapentin 300 mg capsule See Rx Instructions PO QHS #90 caps 06/27/24 08/01/24 Rx diclofenac sodium 75 mg 75 mg PO BID #60 tabs 07/24/24 08/01/24 Rx tablet,delayed release hydrocodone 7.5 mg-acetaminophen 1 tablet PO Q4H PRN pain #20 tabs 08/09/24 Rx 325 mg tablet Patient hx anesthesia problems: none Family hx anesthesia problems: none Results Review: All pre-operative results and documents have been reviewed as part of the pre-operative evaluation. [facility] Past Medical History Medical History Actinic keratosis Allergic contact dermatitis, unspecified cause (02/19/19) Allergies Autoimmune thyroiditis (07/04/19) Cellulitis of pubic region MRSA MRSA (methicillin resistant staph aureus) culture positive Muscle wasting and atrophy, not elsewhere classified, unspecified hand Pneumonia Pre-syncope Spasm of right piriformis muscle Torsion of ovary, ovarian pedicle and fallopian tube Surgical History Surgical History History of elbow surgery Dr Augustin [address] Augustin 2013 History of repair of left rotator cuff Dr Justice 2015 Family History Family History Mother Dementia Alzheimer disease Father Dementia Sibling No problems noted. Social History Social History Smoking packs per day: 0.5 Smoking cigarettes per day: 10.0 Years smoked: 43 Smoking pack-years: 21.50 Smoking status: Former smoker Tobacco type: cigarettes Second hand tobacco smoke exposure: Yes Smoking end date: 07/01/24 Additional smoking assessment comments: DENIES ANY FORM OF TOBACCO USE Alcohol intake: never Substance use: never Substance use type: does not use Do You Feel Safe in your Home?: Yes Lack of Transportation: No Lack of Food: Never True Current Housing: I Have Housing Concerned About Future Housing: No Difficulty Paying Gas/Electric Bills: No Difficulty Paying for Meds: No Currently Unemployed: YES Education: High School Diploma/GED Difficulty w/ Childcare or Family Care: No Living arrangements: with family Occupation/Education: retired 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
--- NOTE | 2024-08-12 07:18 | WPDHPUPDATE1 ---
History and Physical Update Update Date/Time: 08/12/24 07:18 History and Physical has been reviewed, including an updated exam of the patient. There are NO changes in the patient's condition. Risks, benefits, and alternatives have been discussed and questions answered. Patient agrees to proceed with procedure.
[2024-08-12] MEDS: ceFAZolin 2 GM/D5W 50 ML 2 GM/50 ML BAG IVPB ×3 (07:30→22:45)
[2024-08-12] MEDS: SODIUM CHLORIDE 0.9% IV 37.7 ML, MORPHINE SULFATE INJ (*CRX) 2 MG, ROPivacaine HCL 1% 2... INFILTRATE (08:20)
[2024-08-12] MEDS: ceFAZolin SODIUM 1 GM VIAL 3 GM (09:01)
[2024-08-12] MEDS: TRANEXAMIC ACID 1,000 MG/10 ML AMPUL 1000 MG IV PUSH (10:56)
[2024-08-12] MEDS: ceFAZolin SODIUM 1 GM VIAL 2 GM IV PUSH (10:57)
[2024-08-12] MEDS: KETOROLAC 15 MG/ML VIAL (*BKC) IV PUSH ×2 (11:02→17:27)
--- NOTE | 2024-08-12 11:20 | PM.OP ---
Procedure Note - Brief Procedure Note - Brief Date of procedure: 08/12/24 OA right hip Procedure performed: Right anterior total hip arthroplasty Surgeon: RASHAD Ware Findings: 59-year-old female who underwent right anterior total hip arthroplasty on 08/12. I was involved procedure including positioning patient on the OR table and 1st assisting through the time surgery. Total time spent was 3-1/2 hours
--- NOTE | 2024-08-12 11:22 | W.PM.PROC2 ---
Procedure Note - Detailed Date of Procedure 08/12/24 Pre-op Diagnosis OA right hip Post-op Diagnosis Same Procedure Performed Right total hip arthroplasty Surgeon Chao Haley MD Supervisor [employer] Anesthesia General Description of Procedure Patient was brought to the operating room and general anesthesia was administered. She received weight based vancomycin 2 g of Ancef 1 g of TXA preoperatively. Padding was placed on the feet in the boots applied and the patient transferred to the OSI [place] table and the right hip prepped draped usual fashion. SCDs on both legs running during the procedure. A 10 cm longitudinal incision was made starting 3 cm lateral to the ASIS. Dissection was carried down to fascia over the tensor fascia izabela which was longitudinally incised elevated off the anterior 50% of the TFL muscle. Interval between TFL and rectus femoris developed crossing branches of ascending lateral femoral circumflex vessels were isolated ligated with suture divided. Retractor was placed anteromedial to the capsule. The hip abducted internally rotated and the gluteus minimus elevated off the lateral capsule. Inverted T capsulotomy was performed and femoral neck osteotomy made according to preoperative templating. The femoral head was removed. It measured 44.5 mm in diameter. It had diffuse fissuring and chondromalacia. Acetabulum was exposed labrum excised. The leg was externally rotated extended and small portion of the lateral capsular flap resected and release of lateral capsule from the Cell completed. The saddle was exposed but we did not need to split the interval between conjoined tendon and piriformis as we had adequate exposure. With the leg back in the horizontal position, the acetabulum was exposed. We medialized with a 44 Reamer and reamed to 47 mm which gave for full contact. We reamed to 48 and chose the emphasis 48 mm cup. This was inserted but unfortunately would not seat the last few mm. We reamed again with a 48 this time to the for the acetabulum and this time the 48 mm cup could be seated and it seated fully. The anterior rim of the cup was a mm under the anterior rim of the acetabulum and the posterior superior rim about 5 mm proud to the acetabular rim. Excellent Press-Fit was achieved. A single screw placed in the ilium and the S 36 mm inner diameter liner seated fully without difficulty. Bone quality was very good. She did have more than the average amount of bleeding from the acetabular surface however. With the liner fully seated bleeding ceased cup was placed at 40? of abduction and anteversion matching the anatomy. The femur was externally rotated extended using the table hook for elevation and we broached to a size 5. Intraoperative x-ray showed we were just a few mm longer than her preoperative templated plan. We calcar planed. The 5 had wiggle. We countersunk 3 mm and went up to a size 6 which we seated to the same depth. This had no torsional play. Intraoperative x-ray showed that we had the same leg length as preop which was our goal with the +5 and appropriate soft tissue tension. This matched our preoperative templating exactly. We calcar planed once again and placed the size 6 standard offset Actis stem which seated fully. No cracks noted in the calcar. Fixation seem solid on the stem. We trialed 1 more time with a +5 and has had appropriate stability but ample Shuck and we placed the +5 ceramic by 36 mm head onto the clean dry trunnion after thorough irrigation of the wound with antibiotic solution. Hip was reduced stability reconfirmed. Superior limb the capsulotomy approximated with 2. Vicryl stitch. Fascia closed with 1. Running Vicryl drain in the subcu skin closed with 2 subcutaneous Vicryl and glue. Two additional g of Ancef 1 g of TXA given time wound closure. The Cell Saver person estimated total blood loss at 1800 cc which seem to far exceed my impression of the blood loss which was more th
[2024-08-12] MEDS: fentaNYL CITRATE INJ (*CRX) 100 MCG/2 ML VIAL 25 MCG IV PUSH ×4 (11:25→12:08)
[2024-08-12] MEDS: ACETAMINOPHEN 325 MG TABLET 650 MG PO ×3 (12:48→20:34)
[2024-08-12] MEDS: SODIUM CHLORIDE 0.9% IV 1,000 ML 125 ML IV CONT (12:48)
[2024-08-12 13:24] LABS: Hematocrit 35.5 % (37.0-47.0); Hemoglobin 11.7 g/dL (12.0-15.0)
[2024-08-12] MEDS: SENNA/DOCUSATE SODIUM TABLET 2 TAB PO (17:21)
[2024-08-12] MEDS: ONDANSETRON INJ 4 MG/2 ML VIAL IV PUSH (17:28)
[2024-08-12] MEDS: VANCOMYCIN 1,000 MG/NS 250 ML 1,000 MG/250 ML BAG 250 MG IVPB (18:29)
[2024-08-12] MEDS: LACTATED RINGERS 500 ML 999 ML IV CONT (18:37)
[2024-08-12] MEDS: FAMOTIDINE 20 MG TABLET PO (20:34)
[2024-08-13] MEDS: ACETAMINOPHEN 325 MG TABLET 650 MG PO ×2 (00:49→05:32)
[2024-08-13] MEDS: oxyCODONE HCL (*CRX) 5 MG TAB IR PO (00:54)
[2024-08-13 04:46] VITALS: BP 109/55; PULSE 104; RESP 18; TEMP 36.4; O2SAT 100
[2024-08-13 05:02] LABS: Basophils Percent Auto 0.2 % (0.2-1.2); Hematocrit 27.8 % (37.0-47.0); Hemoglobin 9.3 g/dL (12.0-15.0); Immature Granulocyte Absolute 0.12 K/mm3 (0.00-0.031); Immature Granulocyte Percent A 0.6 % (0-0.5); Lymphocytes Absolute Auto 1.58 K/mm3 (0.9-3.2); Lymphocytes Percent Auto 8.5 % (18.3-44.2); Mean Corpuscular HGB Conc 33.5 g/dl (32-36); Mean Corpuscular Hemoglobin 31.1 pg (26-34); Mean Platelet Volume 9.9 fl (7.4-10.4); Monocytes Absolute Auto 1.4 K/mm3 (0.1-0.6); Monocytes Percent Auto 7.6 % (2.6-8.5); Neutrophils Absolute Auto 15.4 K/mm3 (1.3-6.7); Neutrophils Percent Auto 83.1 % (45.5-73.1); Platelet Count Result 197 k/mm3 (150-375); Red Blood Count 2.99 M/mm3 (4.2-5.4); Red Cell Distribution Width 12.7 % (11.5-14.5); White Blood Count 18.6 K/mm3 (4.5-10.0)
[2024-08-13 05:18] LABS: Anion Gap 3 mmol/L (4-12); Blood Urea Nitrogen 11 mg/dL (7-17); Calcium 8.5 mg/dL (8.4-10.2); Carbon Dioxide 26 mmol/L (22-30); Chloride 109 mmol/L (98-107); Estimated CRCL calculation 69 ml/min; Estimated Glomerular Filt Rate > 60; Glucose 121 mg/dL (65-110); Potassium 4.5 mmol/L (3.4-5.0); Sodium 138 mmol/L (137-145)
[2024-08-13] MEDS: LEVOTHYROXINE SODIUM 75 MCG TABLET PO (05:32)
[2024-08-13] MEDS: VANCOMYCIN 1,000 MG/NS 250 ML 1,000 MG/250 ML BAG 250 MG IVPB (05:34)
[2024-08-13 05:44] VITALS: PULSE 91
[2024-08-13] MEDS: MORPHINE SULFATE (*CRX) 2 MG/ML INJ IV PUSH (05:46)
--- NOTE | 2024-08-13 06:42 | PM.PNORT ---
Subjective Subjective Date/Time Seen: 08/13/24 06:42 Interval history: Postop day 1 patient is alert. She has been afebrile. Blood pressure systolic has been in the 110s. She has been slightly tachycardic. Hemoglobin 9.3. Patient is having no symptoms from the lower hemoglobin. She is having no lightheadedness when she gets up. She has been up multiple times overnight to the restroom and urinating frequently and a lot she states. Drains been removed. Dressing is dry and intact. Neurovascularly she is intact. She feels that the oxycodone does not work for her and requested hydrocodone for pain control. Overall pain is very mild. This was switched the morning of postop day 1. Patient was up walking yesterday with physical therapy and has been very comfortable and overall doing very well. We will plan have the patient work with therapy this morning and if she continues to do well she will be discharged home later this morning. Objective Data Vital Signs Vital Signs: Vital Signs - 24 hr 08/12/24 11:10 08/12/24 11:15 08/12/24 11:30 Temperature 98.5 F Pulse Rate 100 101 H 103 H Respiratory Rate 12 12 16 Blood Pressure 128/65 112/64 115/76 Pulse Oximetry 100 100 98 Oxygen Delivery Simple Face Mask Simple Face Mask Room Air Oxygen Flow Rate 8 8 08/12/24 11:45 08/12/24 12:00 08/12/24 12:12 Temperature 96.8 F L Pulse Rate 100 88 91 Respiratory Rate 15 12 14 Blood Pressure 115/76 96/75 L 102/51 L Pulse Oximetry 96 96 98 Oxygen Delivery Room Air Room Air Oxygen Flow Rate 08/12/24 12:27 08/12/24 12:57 08/12/24 13:44 Temperature 96.8 F L 96.4 F L Pulse Rate 87 82 Respiratory Rate 14 14 Blood Pressure 96/56 L 99/53 L Pulse Oximetry 93 93 Oxygen Delivery Room Air Oxygen Flow Rate 08/12/24 14:10 08/12/24 14:43 08/12/24 13:57 Temperature 96.5 F L Pulse Rate 98 Respiratory Rate 14 Blood Pressure 94/60 L Pulse Oximetry 98 Oxygen Delivery Room Air Room Air Oxygen Flow Rate 08/12/24 17:57 08/12/24 19:36 08/12/24 19:37 Temperature 98.1 F 98.1 F Pulse Rate 85 88 107 H Respiratory Rate 16 18 18 Blood Pressure 94/60 L 103/50 L 95/68 L Pulse Oximetry 100 95 95 Oxygen Delivery Oxygen Flow Rate 08/12/24 19:37 08/12/24 20:05 08/12/24 23:55 Temperature 98.1 F 98.1 F 97.7 F Pulse Rate 103 H 104 H 109 H Respiratory Rate 18 18 20 Blood Pressure 111/51 L 97/58 L 102/53 L Pulse Oximetry 96 93 98 Oxygen Delivery Oxygen Flow Rate 08/12/24 20:35 08/13/24 04:46 08/13/24 05:44 Temperature 97.5 F L Pulse Rate 104 H 91 Respiratory Rate 18 Blood Pressure 109/55 L Pulse Oximetry 100 Oxygen Delivery Room Air Oxygen Flow Rate Intake/Output Intake/Output: Intake & Output 08/10/24 08/11/24 08/12/24 08/13/24 23:59 23:59 23:59 23:59 Intake Total 2140 Balance 2140 Meds/Results Medications: Active Medications Generic Name Dose Route Start Last Admin Trade Name Freq PRN Reason Stop Dose Admin Hydrocodone Bitart/Acetaminophen 1 tab 08/13/24 06:40 Hydrocodone/Acetaminophen (*Crx) 7.5-325 Mg Tablet PO Q4H ZANDRA Albuterol 2 puff 08/12/24 12:12 Albuterol Sulfate (*Sp) Aerosol 1 Puff INHALATION Q4H PRN SOB/WHEEZING Apixaban 2.5 mg 08/13/24 09:00 Apixaban 2.5 Mg Tablet PO Q12HR [facility] Cefdinir 300 mg 08/13/24 12:00 Cefdinir 300 Mg Capsule PO Q12HR ZANDRA Celecoxib 200 mg 08/13/24 09:00 Celecoxib 200 Mg Capsule PO DAILY ZANDRA Famotidine 20 mg 08/12/24 21:00 08/12/24 20:34 Famotidine 20 Mg Tablet PO 20 mg Q12HR ZANDRA Administration Sodium Chloride 1,000 mls @ 125 mls/hr 08/12/24 12:12 08/12/24 22:30 Normal Saline Iv IV CONT Infused .Q8H ZANDRA Infusion Cefazolin Sodium 2 gm in 50 mls @ 100 mls/hr 08/12/24 15:00 08/12/24 23:15 Ancef 2 Gm/D5w 50 Ml IVPB 08/13/24 07:29 Infused Q8H ZANDRA Infusion Vancomycin HCl 1,000 mg in 250 mls @ 250 mls/hr 08/12/
[2024-08-13] MEDS: ceFAZolin 2 GM/D5W 50 ML 2 GM/50 ML BAG IVPB (06:44)
--- NOTE | 2024-08-13 06:51 | PM.DS ---
DS: Admitting Diagnosis Discharge Date 08/13 Admitting Diagnosis Right hip DJD DS: Discharge Diagnosis Discharge Diagnosis (1) Hip arthritis: Code(s): M16.10 - Unilateral primary osteoarthritis, unspecified hip Status: Acute DS: Summary Hospital Course Hospital Course: 59-year-old female who underwent right anterior total hip arthroplasty on 08/12. Underwent the procedure without complications. Postoperatively she has been afebrile vital signs have been stable. Patient's blood pressure has been on the lower side through surgery as well as postoperatively. This seems to be her baseline. She is having no symptoms from the lower blood pressure as far as getting up and feeling lightheaded or dizzy. Morning of postop day 1 patient was alert and comfortable. She felt that the oxycodone were not helping with her pain control. She was taking hydrocodone prior to surgery because she was taken off her diclofenac and this seemed to work better so we have switched her to the hydrocodone 7.5 mg q.4 hours p.r.n.. I have switched her Tylenol to 500 mg every 6 hours due to the hydrocodone having Tylenol in it. Patient was comfortable the morning of postop day 1. Drain was removed. Incision was dry and intact. Neurovascularly she is intact. She was up walking with therapy the day of surgery has been comfortable and eager to go home. Hemoglobin the morning of postop day 1 was 9.3. Patient has been making plenty of urine. She will be discharged home on 08/13. Patient is weight-bearing as tolerated. She will go home with a 10 day course of Omnicef due to her history of recently quitting smoking. She also go home with a 10 day course of Celebrex 200 mg. She will go home with Senokot and MiraLax as well. Patient was advised to keep leg elevated home prevent swelling. She may use a cane or walker depending on her comfort level. She was advised any questions or concerns she is to the office otherwise we will see her at her appointments. Time Spent with Patient Time attestation: Total time spent providing and/or coordinating discharge services: DS: Data Data Completed and Pending Labs on day of discharge: Labs from last 24 hours 08/13/24 08/12/24 04:29 13:18 WBC 18.6 H RBC 2.99 L Hgb 9.3 L 11.7 L Hct 27.8 L 35.5 L MCV 93.0 MCH 31.1 MCHC 33.5 RDW 12.7 Plt Count 197 MPV 9.9 Immature Gran % (Auto) 0.6 H Neut % (Auto) 83.1 H Lymph % (Auto) 8.5 L [place] % (Auto) 7.6 Eos % (Auto) 0.0 Baso % (Auto) 0.2 Lymph # (Auto) 1.58 [place] # (Auto) 1.4 H Eos # (Auto) 0.0 Baso # (Auto) 0.0 Abs Immat Gran (auto) 0.12 H Absolute Neuts (auto) 15.4 H Absolute Nucleated RBC 0.000 Nucleated RBC % 0.0 Sodium 138 Potassium 4.5 Chloride 109 H Carbon Dioxide 26 Anion Gap 3 L BUN 11 Creatinine 0.70 Estim Creat Clear Calc 69 Estimated GFR > 60 Glucose 121 H Calcium 8.5 Discharge Plan Discharge Patient Disposition: Home, Self-Care Discharge Instructions: ИРИНА HORAN M.D [facility] [address] [place] [address] [address] [place] [address] POST-OPERATIVE DISCHARGE INSTRUCTIONS ANTERIOR TOTAL HIP ARTHROPLASTY 1. Move toes/feet up and down every hour while awake. 2. Be up walking every hour while awake. 3. Use walker realtime captioner if instructed to use walker realtime captioner.When you are allowed to use the cane, use the cane in the opposite hand. 4. When resting, do not rest in the chair. Rather, lie on your back, with back flat, and the leg elevated above heart to minimize swelling. You may put a pillow under your head. Do not rest in a chair. Resting in the chair results in swelling in the leg. Significant swelling could indicate a blood clot and if this occurs, call the office (or go to the ER) to have a venous ultrasound performed. Its ok to sit in the chair to eat and use the toilet and to receive a guest but sitting in a chair w
[2024-08-13] MEDS: SENNA/DOCUSATE SODIUM TABLET 2 TAB PO (08:09)
[2024-08-13] MEDS: APIXABAN 2.5 MG TABLET PO (08:09)
[2024-08-13] MEDS: HYDROcodone/acetaminophen (*CRX) 7.5-325 MG TABLET 1 TAB PO (08:09)
[2024-08-13] MEDS: FAMOTIDINE 20 MG TABLET PO (08:09)
[2024-08-13] MEDS: polyethylene glycoL 3350 17 GM POWD.PACK PO (08:10)
[2024-08-13] MEDS: CELECOXIB 200 MG CAPSULE PO (08:10)
[2024-08-13] MEDS: CHOLECALCIFEROL 5,000 UNITS TABLET 5000 UNITS BY MOUTH (08:10)
== END 2024-08-13 10:15 | disposition home or self-care (01) ==
LOC: ANHSURGERY 05:57 → ANH2MED 12:17
PROVIDERS: Physician Assistant Surgical; PCP Family Medicine; Visit Provider Orthopaedic Surgery
PROC: (CPT 27130; principal; 2024-08-12 07:30)
DX: M16.11 Unilateral primary osteoarthritis, right hip (principal); L57.0 Actinic keratosis; Z79.51 Long term (current) use of inhaled steroids; Z79.891 Long term (current) use of opiate analgesic; Z98.890 Other specified postprocedural states; Z87.891 Personal history of nicotine dependence
CPT/HCPCS: 27130; 36415; 73501; 80048; 80307; 82040; 83036; 85014; 85018; 85025; 86850; 86900; 86901; 87081; 93005; 97110; 97161; 97165; 97530; 97535; 99199; A9270; C1713; C1776; J0171; J0330; J0690; J1100; J1171; J1885; J2003; J2250; J2270; J2371; J2405; J2704; J2795; J3010; J3370; J7030; J7120

== ENCOUNTER 2024-10-22 10:11 | Outpatient (CLI) | payer OTHER, SELFPAY ==
--- NOTE | ~2024-10-22 | XR_ITS ---
Cervical Spine: AP, lateral, open-mouth views Clinical History: Pain Findings: The normal lordotic curve is maintained. No fracture or subluxation seen. There is moderate to advanced degenerative disc narrowing at C5-C6 and C6-C7. Minimal facet arthropathy present in the cervical spine.. Pre-vertebral soft tissues are unremarkable. Impression: Degenerative change as above, especially at C5-C6 and C6-C7. Reviewed, dictated and finalized at [facility]. [employer]OR CASE MANAGEMENT Impression: Degenerative change as above, especially at C5-C6 and C6-C7.
--- NOTE | ~2024-10-22 | XR_ITS ---
Lumbosacral Spine: AP and lateral views Clinical History: Pain Findings: The normal lordotic curve is maintained. The vertebral bodies and posterior elements are i ntact. The intervertebral disc spaces are preserved. There is moderate facet arthropathy lower lumba r spine. The sacroiliac joints are normally outlined. Impression: Facet arthropathy, as above. Reviewed, dictated and finalized at location . [facility] Impression: Facet arthropathy, as above.
== END 2024-10-22 10:12 | disposition home or self-care (01) ==
PROVIDERS: PCP Family Medicine; Visit Provider Student in an Organized Health Care Education/Training Program
DX: R20.0 Anesthesia of skin (principal); R20.2 Paresthesia of skin
CPT/HCPCS: 72040; 72100

== ENCOUNTER 2024-10-29 08:50 | Outpatient (RCR) | payer OTHER, SELFPAY ==
--- NOTE | 2024-10-29 10:17 | OPREHPOC ---
Outpatient Therapy Plan of Care This is a Multidisciplinary Plan of Care that may contain components documented by all disciplines (PT, OT, and ST.) PT Problem 1 PT Problem #1 Knowledge Deficit PT Goal 1 Goal / Goal Update 1. independent and compliant with HEP Target Visit 6 PT Problem 2 PT Problem #2 Pain PT Goal 1 Goal / Goal Update 1. patient to report no pain in either hip 2. no pain in the lower back Target Visit 12 PT Problem 3 PT Problem #3 Impaired Range of Motion PT Goal 1 Goal / Goal Update 1. 20 degrees or better active lumbar extension Target Visit 12 PT Problem 4 PT Problem #4 Impaired Strength PT Goal 1 Goal / Goal Update 1. 4+/5 bilateral hip strength overall 2. 5/5 bilateral knee strength Target Visit 12 PT Problem 5 PT Problem #5 Impaired Functional Mobility PT Goal 1 Goal / Goal Update 1. patient to ambulate 30 minutes without rest or fatigue reports 2. patient to sleep through the night without bilateral hip or lower back pain 3. patient to ambulate with normal gait mechanics Target Visit 12
--- NOTE | 2024-10-29 10:17 | PTOPEVAL1 ---
Assessment and note entered by JT File, PT Evaluation Information Assessment Status Evaluation ICD-10 Condition Codes (PT) Pain in low back M54.50,Pain in right hip M25.551, Pain in left hip M25.552 Onset 08/12/24 Subjective Information patient reports she fractured her R hip in March of last year. she reports she ended up not seeing a surgeon or MD until May. she then had R KAYLEEN on 08/12/24. since surgery, she has been having lower back pain, L lateral hip pain, and R hip pain. she reports she is easily worn out with walking. she reports she is not big on exercising on her own. she reports she is going out of town next week, and will be doing a lot of walking. she reports she also has pain in the R hip with laying down. she did not have any therapy after the surgery. Reported Pain Level Pain Score 3,3,0: Self Report Assessment PT Clinical Summary mrs. oakes is a 59 yo woman who presents to skilled PT services for evaluation and treatment of bilateral hip and lower back pain. she presents today with signs and symptoms of residual weakness of the R hip from KAYLEEN, bilateral greater trochanteric bursitis, and lumbar stenosis. she would benefit from continued skilled PT services to improve her bilateral LE strength, gait mechanics, and functional endurance to return to prior level activities and improve her quality of life. Plan of Care Interventions Electrical Stimulation,Gait Training,Hot Pack/Cold Pack,Manual Therapy,Neuro Re-education,Patient/ Caregiver Education,Therapeutic Activities, Therapeutic Exercise PT Services Indicated Yes Treatment Frequency and 3x weekly for 12 visits Duration These treatments will address the objective and functional deficits as defined above. The patient will be advanced safely and appropriately in order for the patient to progress towards his/her prior level of function. Additional exercises will be introduced and as well as a comprehensive home exercise program upon discharge, if needed, ?to ensure carryover of functional gains achieved in the clinic. This treatment plan has been reviewed and agreement upon by the patient.
== END 2025-01-27 23:59 | disposition home or self-care (01) ==
LOC: CHSPT 08:50
PROVIDERS: Visit Provider Physician Assistant Surgical
DX: M25.552 Pain in left hip (principal); M54.50 Low back pain, unspecified; Z96.641 Presence of right artificial hip joint
CPT/HCPCS: 97014; 97110; 97140; 97161; G0283

== ENCOUNTER 2024-12-16 08:10 | Outpatient (CLI) | payer OTHER, SELFPAY ==
--- NOTE | ~2024-12-16 | MR_ITS ---
EXAMINATION: MR lumbar spine wo con DATE: 12/16/2024 09:05 INDICATION: Polyneuropathy. Worsening numbness and tingling to the bilateral lower extremities. TECHNIQUE: Magnetic resonance imaging (MRI) of the lumbar spine was performed without intravenous con trast. Sequences included sagittal T2-weighted FSE, sagittal T2-weighted FS FSE, sagittal T1-weighted FSE, and axial T2-weighted FSE. COMPARISON: None FINDINGS: 2 mm retrolisthesis L3 on L4, L4 on L5 and L5 on S1. Vertebral body heights are normal. Normal marro w signal. Minimal disc height loss at L3-L4 and L4-L5. The conus medullaris terminates at L1-L2. Ther e is normal signal in the caudal spinal cord. Paravertebral soft tissues are unremarkable. The follow ing disc levels are specifically discussed: T12-L1: The disc does not extend beyond the endplate margin. There is mild bilateral facet joint oste oarthritis. There is no neural foraminal stenosis. There is no central canal stenosis. L1-L2: The disc does not extend beyond the endplate margin. There is mild bilateral facet joint osteo arthritis. There is no neural foraminal stenosis. There is no central canal stenosis. L2-L3: The disc does not extend beyond the endplate margin. There is mild to moderate bilateral facet joint osteoarthritis. There is no neural foraminal stenosis. There is no central canal stenosis. L3-L4: Disc is mildly bulging. There is mild to moderate bilateral facet joint osteoarthritis. There is mild bilateral neural foraminal stenosis. There is minimal central canal stenosis. L4-L5: Disc is mildly bulging. There is mild to moderate bilateral facet joint osteoarthritis. There is mild bilateral neural foraminal stenosis. There is minimal central canal stenosis. L5-S1: Disc is mildly bulging. There is mild to moderate bilateral facet joint osteoarthritis. There is mild bilateral neural foraminal stenosis. There is normal central canal stenosis. IMPRESSION: 1. Mild lumbar spondylosis. Reviewed, dictated and finalized at location B. ENRICHMENT SPECIALIST IMPRESSION: 1. Mild lumbar spondylosis.
--- NOTE | ~2024-12-16 | MR_ITS ---
EXAMINATION: MR cervical spine wo con DATE: 12/16/2024 08:56 INDICATION: Worsening chronic numbness and tingling of skin at the bilateral extremities. Polyneuropa thy. TECHNIQUE: Magnetic resonance imaging (MRI) of the cervical spine was performed without intravenous c ontrast. Sequences included sagittal T2-weighted FSE, sagittal T2-weighted FS FSE, sagittal T1-weight ed FSE, axial MERGE and axial T2-weighted FSE. COMPARISON: None FINDINGS: Straightening of the normal cervical lordosis. 2 mm retrolisthesis C5 on C6 and C6 on C7. Vertebral body heights are normal. Severe disc height loss with associated mild fibrovascular degenerative endp late changes at C5-C6 and C6-C7 and low signal intensity Modic type III sclerotic endplate changes at C6-C7. Bone marrow signal is otherwise normal. Mild disc height loss at C3-C4 and mild to moderate d isc height loss at C4-C5 with annular fissures at both levels. There is focal minimal increased signa l of the cord at the level of C4-C5 where there is a large disc extrusion resulting in severe central canal stenosis which will be further detailed below. Cervical soft tissues are unremarkable. The fol lowing disc levels are specifically discussed: C2-C3: The disc does not extend beyond the endplate margin. There is mild right uncovertebral joint o steoarthritis. There is mild bilateral facet joint osteoarthritis. There is no neural foraminal steno sis. There is no central canal stenosis. C3-C4: Annular fissure and moderate size central disc extrusion with disc material extending 2 mm bel ow level of the superior endplate of C4. There is mild bilateral uncovertebral joint osteoarthritis. There is moderate left and mild to moderate right facet joint osteoarthritis. There is mild bilateral neural foraminal stenosis. There is moderate central canal stenosis which measures 7 mm AP in the mi d sagittal plane with the disc extrusion indenting the ventral surface of the cord. There is compensa tory left to right widening of the cord. C4-C5: Annular fissure with large disc extrusion which measures 8 mm left to right, 7 mm AP and 11 mm craniocaudally. This results in severe central canal stenosis measuring 4 mm AP in the mid sagittal plane and deforming the cord which is widened [id number] and with central prominent indention of t he ventral surface of the cord. There is mild bilateral uncovertebral joint osteoarthritis. There is minimal bilateral facet joint osteoarthritis. There is mild bilateral neural foraminal stenosis. C5-C6: Disc is bulging. There is moderate right and severe left uncovertebral joint osteoarthritis. T here is mild left and minimal right facet joint osteoarthritis. There is mild right and moderate left neural foraminal stenosis. There is mild to moderate central canal stenosis measuring 7 mm AP in the mid sagittal plane and with flattening of the ventral surface of the cord which is mildly widened le ft to right. C6-C7: Disc is bulging. There is moderate right and severe left uncovertebral joint osteoarthritis. T here is minimal bilateral facet joint osteoarthritis. There is moderate bilateral neural foraminal st enosis. There is moderate central canal stenosis which measures 67 cm AP in the mid sagittal plane wi th mild indentation of the ventral surface of the cord which is mildly widened left right. C7-T1: The disc does not extend beyond the endplate margin. There is no uncovertebral joint osteoarth ritis. There is mild bilateral facet joint osteoarthritis. There is no neural foraminal stenosis. The re is no central canal stenosis. IMPRESSION: 1. Severe cervical spondylosis most notable for a large disc extrusion at C4-C5 which contributes to severe central canal stenosis with focal minimal increased cord signal at this level. Would recommend neurosurgical consultation. Reviewed, dictated and finalized at location B. NICAL TRAINER IMPRESSION: 1. Severe cervical spondylosis most notable for a large disc extrusion at C4-C5 which contributes to severe central canal stenosis with focal minimal increase d cord signal at this level. Would recommend neurosurgical consultation.
== END 2024-12-16 08:11 | disposition home or self-care (01) ==
PROVIDERS: PCP Family Medicine; Visit Provider Family Medicine
DX: M43.06 Spondylolysis, lumbar region (principal); M43.02 Spondylolysis, cervical region
CPT/HCPCS: 72141; 72148

== ENCOUNTER 2025-02-24 02:54 | Emergency (ER) | payer OTHER, SELFPAY ==
[2025-02-24] VITALS (10 sets, daily range): BP systolic 112–144; BP diastolic 60–85; PULSE 96–108; RESP 11–20; TEMP 36.6; O2SAT 89–96
--- NOTE | ~2025-02-24 | CT_ITS ---
Clinical Indication: Chest pain, shortness of breath CT Scan of the Chest with Contrast: Technique: Contiguous sections were acquired throughout the chest after intravenous administration of 100 cc of Omnipaque 350. Dose reduction technique was used on this scan by utilizing automated expos ure control and iterative reconstruction technique. The dose-length product (DLP) was 193.70 mGy-cm. COMPARISON: 07/01/2024 Findings: There is ill-defined soft tissue infiltration in the left neck, which could reflect recent surgical change. There is no evidence of any significant mediastinal, hilar or axillary lymphadenopathy. There is exte nsive pulmonary embolus involving the right main pulmonary artery, extending into all 3 lobar level r ight-sided pulmonary arteries as well as smaller emboli in more distal segmental branches, especially in the right middle and lower lobes. There is less extensive pulmonary embolus in the left pulmonary arterial tree, with involvement of the left lower lobar pulmonary artery as well as segmental level branches in the left upper and lower lobes. No definite evidence of right heart strain. There is no e vidence of aortic dissection or aneurysm. No pericardial effusion. Minimal pleural effusion present. No right pleural effusion.. Probable minimal dependent atelectatic changes. Images through the upper abdomen reveal no abnormalities. Impression: Extensive pulmonary emboli, right side worse than left, as detailed above. No definite evidence of ri ght heart strain. Minimal left pleural effusion. Findings compatible with recent surgical intervention the left neck. Correlate with surgical history. Reviewed, dictated and finalized at [facility]. Impression: Extensive pulmonary emboli, right side worse than left, as detailed above. No d efinite evidence of right heart strain. Minimal left pleural effusion. Findings compatible with recent surgical intervention the left neck. Correlate with surgical history.
--- OUTSIDE RECORDS SUMMARY | 2025-02-24 02:56 | XMS_ITS ---
Author Organization [facility] Address [address] [facility] [address] [place] [address] Care Team Providers Care Passenger Relations Representative Name Role Phone Fozia Salazar Primary Care Provider Erasmo De Jesus Unavailable [phone] PROBLEMS Problem Type ICD Code Onset Dates Problem Status W/U Status Risk SNOMED Code Notes Problem Cervical radiculitis (M54.12) Active confirmed Cervical radiculitis (85427614) Encounters Encounter Location Date Provider Diagnosis [facility] - Inpatient [address] [place] [address] 02/17/2025 Erasmo Benton PLAN OF TREATMENT Next Appt Details Provider Name:Erasmo Cohen ot, 03/03/2025 11:00:00 AM, [address], [facility] [address], [place], [address],
--- OUTSIDE RECORDS SUMMARY | 2025-02-24 02:56 | XMS_ITS ---
Author Organization [facility] Address [address] [facility] [address] [place] [address] Care Team Providers Care Roving Machine Operator Name Role Phone Fozia Salazar Primary Care Provider Erasmo De Jesus Unavailable [phone] REASON FOR VISIT Rx for after surgery MEDICATIONS Medication SIG (Take, Route, Frequency, Duration) Notes Start Date End Date Status Ibuprofen 800 MG 1 tablet with food o r milk as needed Orally every 8 hrs for 90 days 02/17/2025 Active oxyCODONE-Acetaminophen 7.5-325 MG 1 tablet as needed Orally every 4-6 hrs for 7 days 02/17/2025 Active Encounters Encounter Location Date Provider Diagnosis [facility], [address] [facility] [address] [place] [address] 02/14/2025 Erasmo Benton PLAN OF TREATMENT Medication Medication Name Sig Start Date Stop Date Notes Ibuprofen 800 MG 1 tablet with food o r milk as needed Orally every 8 hrs for 90 days 02/17/2025 oxyCODONE-Acetaminophen 7.5- 325 MG 1 tablet as needed Orally every 4-6 hrs for 7 days 02/17/2025 Next Appt Details Provider Name:Erasmo Cohen ot, 03/03/2025 11:00:00 AM, [address], [facility] [address], [place], [address],
--- OUTSIDE RECORDS SUMMARY | 2025-02-24 02:56 | XMS_ITS | Patient Health Record ---
Author Organization [facility] Address [address] [facility] [address] [place] [address] Care Team Providers Care Forest Management Professor Name Role Phone Fozia Saalzar Primary Care Provider Unavail able SerenityErasmo Unavailable [phone] ALLERGIES No Known Allergies RESULTS Component Value Reference Range Notes X ray : Cervical Spine 7 vie ws, AP, Lateral, Swimmers, Obliques, Flexion and Extension Reviewed date:01/22/2025 12:44:33 PM Interpretation:1139 Performing Lab: Notes/Report: 1139 X ray : Lumbar spine 5 views , AP, Lateral, Spot, Flexion and Extension Reviewed date:01/22/2025 12:44:28 PM Interpretation:1139 Performing Lab: Notes/Report: 1139 REASON FOR REFERRAL No Information MEDICATIONS Medication SIG (Take, Route, Frequency, Duration) Notes Start Date End Date Status Ibuprofen 800 MG 1 tablet with food o r milk as needed Orally every 8 hrs for 90 days 02/17/2025 Active Levothyroxine Sodium Active Bijuva Active Omeprazole Active DULoxetine HCl Activ e Vitamin D-3 Active Aleve Active Multi Adult Gummies Active oxyCODONE-Acetaminophen 7.5-325 MG 1 tablet as needed Orally every 4-6 hrs for 7 days 02/17/2025 Active PROBLEMS Problem Type ICD Code Onset Dates Problem Status W/U Status Risk SNOMED Code Notes Problem Cervical stenosis of spine (M48.02) Active confirmed Spinal stenos is in cervical region (12876544) Problem Cervical disc displacement (M50.20) Active confirmed Displacement of cervical intervertebral disc (disorder) (870281621) Problem DDD (degenerative disc disease), cervical (M50.30) Active confirmed Cervical disc disorder (554012080) Problem Cervical myelopathy (G95.9) Active confirmed Cervical myelopathy (063549237) Problem Myelomalacia (G95.89) Active confirmed Myelomalacia (42545556) Problem Facet degeneration of lumbar region (M47.816) Active confirmed Lumbosacral spondylosis without myelopathy (64099725) Problem Cervical pain (M54.2) Active confirmed Cervical pain (32034989) Problem Cervical radiculitis (M54.12) Active confirmed Cervical radiculitis (73522138) VITAL SIGNS Height 66 in 01/22/2025 Weight 170 lbs 01/22/2025 BMI 27.44 kg/m2 01/22/2025 PROCEDURES Procedure Date Ordered Date Performed Result Body Sit e DME_Bone Stim, Cervical Spine 01/22/2025 send t o pato- Cervical Collar 01/22/2025 in brown folder Anterior Cervical Discectomy and Fusion 01/22/2025 02/17/2025 approved Encounters Encounter Location Date Provider Diagnosis [facility] [address] [address] 01/22/2025 Erasmo Benton [facility] [address] [address] 01/22/2025 Erasmo Benton Preop testing Z01.81 8 ; Cervical stenosis of spine M48.02 ; Cervical disc displacement M50.20 ; DDD (degenerative disc disease), cervical M50.30 ; Cervical myelopathy G95.9 ; Myelomalacia G95.89 ; Facet degeneration of lumbar region M47.816 and Other low back pain M54.59 [facility] - Inpatient [address] [place] [address] 02/17/2025 Erasmo Benton [facility] [address] [address] 01/23/2025 Erasmo Benton [facility] [address] [address] 02/14/2025 Erasmo Benton ASSESSMENTS Encounter Date Diagnosis Assessment Notes Treatment Notes Treatment Clinical Notes 01/22/2025 Preop testing (ICD-10 - Z01.818) 01/22/2025 Cervical stenosis of spine (ICD-10 - M48.02) 01/22/2025 Cervical disc displacement (ICD-10 - M50.20) 01/22/2025 DDD (degenerative disc disease), cervical (ICD-10 - M50.30) 01/22/2025 Cervical myelopathy (ICD-10 - G95.9) 01/22/2025 Myelomalacia (ICD-10 - G95.89) 01/22/2025 Facet degeneration of lumbar region (ICD-10 - M47.816) 01/22/2025 Other low back pain (ICD-10 - M54.59) PLAN OF TREATMENT Pending Test Test Name Order Date Electrocardiogram (EKG) 01/22/2025 CBC With Differential/Platelet PT AND PTT 01/22/2025 Chem-Comprehensive 01/22/2025 X ray : Chest 2 views, PA, Lateral 01/22 DME_Bone Stim, Cervical Spine 01/22/2025 Cervical Collar 01/22/2025 INR 01/22/2025 Next Appt Details Provider Name:Erasmo Cohen ot, 03/03/2025 11:00:00 AM, [address], [facility] [address], [place], [address], Insurance Providers Payer Name Payer Address Payer Phone Subscriber Number Group Number Insured Name Patient Relationship to Insured Coverage Start Date Coverage End Date r [address] [address] [place] [address] [id number] Madelaine De Anda Self - patient is the insured MEDICAL (GENERAL) HISTORY Medical History History ICD Code Asthma Thyroid disease Arthritis Numbness in hands/feet Denies h/o emotional/psychiatric disorde r Denies h/o drug/chemical dependency Surgical History Surgery Date(Month/Year) Appendectomy 1980 Right ovary 2007 Hand 2014 Tennis elbow 2014 Left rotator cuff 2015 Right THR 2023
--- OUTSIDE RECORDS SUMMARY | 2025-02-24 02:57 | XMS_ITS ---
Author Organization [facility] Address [address] [facility] [address] [place] [address] Care Team Providers Care Client Application Support Engineer Name Role Phone Fozia Salazar Primary Care Provider Erasmo De Jesus Unavailable [phone] REASON FOR VISIT Surgery Encounters Encounter Location Date Provider Diagnosis [facility], [address] [facility] [address] [place] [address] 01/23/2025 Erasmo Benton PLAN OF TREATMENT Next Appt Details Provider Name:Erasmo Cohen ot, 03/03/2025 11:00:00 AM, [address], [facility] [address], [place], [address],
--- NOTE | 2025-02-24 02:59 | ECG_ITS ---
Test Date: 2025-02-24 03:07:36 Measurements Intervals [place] Rate: 102 P: 59 [place]: 158 QRS: 33 QRSD: 84 T: 59 QT: 350 QTc: 456 Interpretive Statements SINUS TACHYCARDIA ABNORMAL RHYTHM ECG Compared to ECG 08/01/2024 10:55:05 Sinus rhythm no longer present Electronically Signed On 02-24-2025 06:44:02 CDT by Tushar Islas M.D.
--- NOTE | 2025-02-24 03:00 | ED_ITS ---
HPI - SOB/Dyspnea General Chief Complaint: Chest Pain Stated Complaint: side pain Time Seen by Provider: 02/24/25 03:00 Source: patient and family Mode of arrival: ambulatory Limitations: no limitations History of Present Illness HPI Narrative: Patient is a 59-year-old female with chest pain and shortness of breath that started acutely this morning from rest. She was sleeping and awoke with left chest pain and associated shortness of breath. The pain is around the breast line area. On entry to the ER she was noted to be hypoxic in the 80s. she recently had cervical spine fusion in the past week for herniated discs. MD elicited complaint: shortness of breath, pain with inspiration and chest pain Pertinent past history: other ( None) Onset (ago): hour(s) ( 2) Context: other ( patient had 6 surgery on her neck spinal fusion at the cervical region in the past week.) Timing: constant Severity: moderate Exacerbating factors: movement, inspiration and deep breaths Relieving factors: nothing Known history of: other ( Negative) Associated symptoms: chest pain Treatment prior to arrival: none Related Data Home oxygen amount: none Home Medications ?Medication ?Instructions ?Recorded ?Confirmed ?Last Taken ?Type cholecalciferol (vitamin D3) 125 125 mcg PO DAILY 10/22/24 01/08/25 11/25/24 History mcg (5,000 unit) capsule estradiol 1 mg-progesterone 100 mg 1 cap PO DAILY 11/21/24 01/08/25 11/25/24 History capsule (Bijuva) multivitamin (Multiple Vitamins 1 tablet PO DAILY 01/08/25 01/08/25 Unknown History tablet) naproxen sodium 220 mg capsule 220 mg PO BID PRN 01/08/25 01/08/25 Unknown History (Aleve) Allergies Allergy/AdvReac Type Severity Reaction Status Date / Time No Known Allergies Allergy Verified 01/08/25 07:07 Review of Systems 2 Review of Systems: All systems reviewed & are unremarkable except as noted in HPI and below Constitutional: Constitutional: Reports no additional constitutional complaints Eyes: Eyes: Reports no additional eye complaints ENT: Reports system reviewed and no additional complaints, except as documented Cardiovascular: Cardiovascular: Reports no additional cardiovascular complaints Respiratory: Respiratory: Reports no additional respiratory complaints Gastrointestinal: Gastrointestinal: Reports no additional gastrointestinal complaints Genitourinary: Genitourinary: Reports no additional female genitourinary complaints Musculoskeletal: Musculoskeletal: Reports no additional musculoskeletal complaints Integumentary/Breasts: Skin/Breast: Reports system reviewed and no additional complaints, except as docu Neurologic: Reports system reviewed and no additional complaints, except as documented Psychiatric: Psychiatric: Reports no additional psychiatric complaints Endocrine: Endocrine: Reports no additional endocrine complaints Hematologic/Lymphatic: Hematologic/Lymphatic: Reports no additional hematologic/lymphatic complaints Allergic/Immunologic: Allergic/Immunologic: Reports no additional allergic/immunologic complaints PMFSH Past Medical History Medical History Positive autoantibody screening for celiac disease EGD biopsy negative MRSA (methicillin resistant staph aureus) culture positive Cellulitis of pubic region MRSA Actinic keratosis Pneumonia Allergies Muscle wasting and atrophy, not elsewhere classified, unspecified hand Allergic contact dermatitis, unspecified cause (02/19/19) Autoimmune thyroiditis (07/04/19) Pre-syncope Spasm of right piriformis muscle Torsion of ovary, ovarian pedicle and fallopian tube Surgical History Surgical History History of right hip replacement 08/12/2024 History of repair of left rotator cuff Dr Justice [address] Augustin [address] hand surgery [address] Augustin 2013 Family History Family History Mother Dementia Alzheimer disease Father Dementia Sibling No problems noted. Social History Social History Smoking packs per day: 0.5 Smoking cigarettes per day: 10.0 Years smoked: 44 Smoking pack-years: 22.00 Smoking status: Former smoker Tobacco type: cigarettes Second hand tobacco smoke exposure: Yes Alcohol intake: never Substance use: never Substance use type: does not use Do You Feel Safe in your Home?: Yes Lack of Transportation: No Lack of Food: Never True Current Housing: I Have Housing Concerned About Future Housing: No Difficulty Paying Gas/Electric Bills: No Difficulty Paying for Meds: No Currently Unemployed: No Education: High School Diploma/GED Difficulty w/ Childcare or Family Care: No Living arrangements: with family Occupation/Education: retired 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[employer] Gender identity (if verbalized by the patient): Female Spiritual care concerns: No Exam 2 Const: General: ill appearing Nutritional Appearance: well nourished O rientation/consciousness: patient oriented x3 Limitations: no limitations HENMT: Head: normal to inspection Ears: external ears normal F radha/Nose/Sinus: Normal external nose present Eyes: Conjunctivae: conjunctivae normal Pupils: Equal, round and reactive pupils present EOM: EOMs intact bilaterally Neck: Neck: normal visual inspection Chest: Chest palpation & inspection: normal inspection of the chest Resp: Effort & Inspection: abnormal respiratory effort, labored, no retractions, tachypneic and no use of accessory muscles Auscultation: clear to auscultation bilaterally, no crackles, no rales, no rhonchi, no wheezes, breath sounds present and lung sounds not diminished Cardio: Rate: regular rate Rhythm: regular rhythm Heart sounds: no murmurs GI: Inspection: non-distended GI Palp: Yes Soft to palpation and No Tenderness to palpation present (GI) Auscultation: normal bowel sounds : General: Yes bladder normal to palpation Back/Spine/Pelvis: Back: no CVA tenderness Skin: General skin exam: normal color Rashes: no rashes Wounds: no wounds Neuro: General: patient oriented x3 Cranial nerves: Yes Nystagmus not present Speech: normal speech Gait exam (Neuro): Normal gait present Extrem: General: normal to inspection Psych: Mental Status: mental status grossly normal Affect: normal affect Attitude: cooperative Course Vital Signs Vital signs: Vital Signs Pulse Rate 108 H 02/24/25 02:55 Temperature 36.6 C 02/24/25 03:00 Pulse Rate 96 02/24/25 04:30 Respiratory Rate 16 02/24/25 04:30 Blood Pressure 129/80 02/24/25 04:30 Pulse Oximetry 94 02/24/25 04:30 Oxygen Delivery Nasal Cannula 02/24/25 03:47 Oxygen Flow Rate 2 02/24/25 03:47 MDM - SOB/Dyspnea MDM Narrative Medical decision making narrative: patient is a 59-year-old female with left-sided chest pain and shortness of breath acutely this evening. We will override the creatinine and get her CTA of the chest for PE at this time. We will give her some oxygen. Your pain control. Check some labs. Lab Data Attestation: I reviewed the patient's lab results. 02/24/25 03:09 02/24/25 03:09 Labs: Lab Results 02/24/25 Range/Units 03:09 WBC 13.2 H (4.8-10.8) K/mm3 RBC 4.20 (4.20-5.40) M/mm3 Hgb 12.7 (12.0-15.0) g/dL Hct 37.9 (35.0-49.0) % MCV 90.2 (78.0-102.0) fL MCH 30.2 (27.0-31.0) pg MCHC 33.5 (32-36) g/dL RDW 13.3 (11.6-14.4) % Plt Count 299 (150-420) K/mm3 MPV 9.3 (9.2-11.8) fl Immature Gran % (Auto) 1.9 H (0.0-0.0) % Neut % (Auto) 62.2 (50.0-70.0) % Lymph % (Auto) 24.7 (18.0-42.0) % [place] % (Auto) 8.2 (2.0-11.0) % Eos % (Auto) 2.6 (1.0-6.0) % Baso % (Auto) 0.4 (0.0-1.0) % Lymph # (Auto) 3.27 (1.10-4.50) K/mm3 [place] # (Auto) 1.08 H (0.10-0.90) K/mm3 Eos # (Auto) 0.35 (0.02-0.50) K/mm3 Baso # (Auto) 0.05 (0.00-0.10) K/mm3 Abs Immat Gran (auto) 0.25 H (0.00-0.00) K/mm3 Absolute Neuts (auto) 8.23 H (1.70-7.20) K/mm3 Absolute Nucleated RBC 0.00 (0.00-0.00) K/mm3 Nucleated RBC % 0.0 (0-0.0) % PT 9.4 L (9.50-12.1) Seconds INR 0.8 APTT 22.2 L (23.9-30.70) Sec Sodium 137 (136-145) mmol/L Potassium 4.3 (3.5-5.1) mmol/L Chloride 100 (98-108) mmol/L Carbon Dioxide 29 (21-32) mmol/L Anion Gap 8 (4-12) mmol/L BUN 11 (7-18) mg/dL Creatinine 0.87 (0.55-1.02) mg/dL Estim Creat Clear Calc 64 ml/min Estimated GFR > 60 (59 - ) Glucose 133 H (70-99) mg/dL Calculated Osmolality 285 (285-295) mOsm/kg Lactic Acid 1.4 (0.4-2.0) mmol/L Calcium 8.7 (8.5-10.1) mg/dL Total Bilirubin 0.3 (0.00-1.00) mg/dL AST 19 (15-37) U/L ALT 22 (14-59) U/L Alkaline Phosphatase 167 H (46-116) U/L Troponin I 6.1 (0.00-60.4) ng/L NT-Pro-B Natriuret Pep 378 H (0-125) pg/mL Total Protein 7.0 (6.4-8.2) g/dL Albumin 3.3 L (3.4-5.0) g/dL Lipase 34 (16-77) U/L Imaging Data Attestation: I personally reviewed and interpreted this imaging study as follows: Radiologist's impression: CTA of the chest for PE study shows large bilateral pulmonary emboli without heart strain and possible left lower lobe infarct ECG Data EKG #1: Attestation: I personally reviewed and interpreted this ECG as follows: ECG completion date: 02/24/25 ECG completion time: 03:35 EKG Interpretation: tachycardia, sinus rhythm, no ectopy, non-specific ST changes, normal QRS, normal QT and NL axis Critical Care Time Critical Care Time Critical Care Time: Yes Total Critical Care Time: 40 Discharge Plan Discharge Clinical Impression: Bilateral pulmonary embolism, Hypoxia Patient Disposition: Acute Care Hospital Condition: Serious Patient Language: Greenlandic Prescriptions: No Action naproxen sodium [Aleve] 220 mg capsule 220 mg PO BID PRN multivitamin [Multiple Vitamins] Tablet 1 tablet PO DAILY Rx Instructions: Gummy cholecalciferol (vitamin D3) 125 mcg (5,000 unit) capsule 125 mcg PO DAILY Bijuva 1-100 mg capsule 1 cap PO DAILY levothyroxine 75 mcg tablet 75 mcg PO DAILY Qty: 90 1RF duloxetine 60 mg capsule,delayed release(DR/EC) 60 mg PO DAILY Qty: 30 5RF omeprazole 40 mg capsule,delayed release(DR/EC) See Rx Instructions .ROUTE .COMPLEX Qty: 90 1RF Dose Instruction: TAKE 1 CAPSULE BY MOUTH EVERY DAY Rx Instructions: TAKE 1 CAPSULE BY MOUTH EVERY DAY albuterol sulfate [Ventolin HFA] 90 mcg/actuation HFA aerosol inhaler 2 inh inhalation Q6H PRN (Reason: shortness of breath or wheezing) Qty: 8.5 4RF Follow-up/Referrals: Fozia Salazar MD [Primary Care Provider] - Time of Disposition: 04:46
[2025-02-24 03:20] LABS: Basophils Absolute Auto 0.05 K/mm3 (0.00-0.10); Basophils Percent Auto 0.4 % (0.0-1.0); Eosinophils Absolute Auto 0.35 K/mm3 (0.02-0.50); Eosinophils Percent Auto 2.6 % (1.0-6.0); Hematocrit 37.9 % (35.0-49.0); Hemoglobin 12.7 g/dL (12.0-15.0); Immature Granulocyte Absolute 0.25 K/mm3 (0.00-0.00); Immature Granulocyte Percent A 1.9 % (0.0-0.0); Lymphocytes Absolute Auto 3.27 K/mm3 (1.10-4.50); Lymphocytes Percent Auto 24.7 % (18.0-42.0); Mean Corpuscular HGB Conc 33.5 g/dL (32-36); Mean Corpuscular Hemoglobin 30.2 pg (27.0-31.0); Mean Corpuscular Volume 90.2 fL (78.0-102.0); Mean Platelet Volume 9.3 fl (9.2-11.8); Monocytes Absolute Auto 1.08 K/mm3 (0.10-0.90); Monocytes Percent Auto 8.2 % (2.0-11.0); Neutrophils Absolute Auto 8.23 K/mm3 (1.70-7.20); Neutrophils Percent Auto 62.2 % (50.0-70.0); Platelet Count Result 299 K/mm3 (150-420); Red Cell Distribution Width 13.3 % (11.6-14.4); White Blood Count 13.2 K/mm3 (4.8-10.8)
[2025-02-24] MEDS: MORPHINE SULFATE (*CRX) 4 MG/ML INJ IV PUSH ×2 (03:29→05:32)
[2025-02-24 03:40] LABS: Alanine Aminotransferase 22 U/L (14-59); Albumin Level 3.3 g/dL (3.4-5.0); Alkaline Phosphatase 167 U/L (46-116); Anion Gap 8 mmol/L (4-12); Aspartate Amino Transferase 19 U/L (15-37); Bilirubin,Total 0.3 mg/dL (0.00-1.00); Blood Urea Nitrogen 11 mg/dL (7-18); Calcium 8.7 mg/dL (8.5-10.1); Carbon Dioxide 29 mmol/L (21-32); Chloride 100 mmol/L (98-108); Estimated CRCL calculation 64 ml/min; Estimated Glomerular Filt Rate > 60; Glucose 133 mg/dL (70-99); Lipase 34 U/L (16-77); NT Pro B Type Natriuretic Pept 378 pg/mL (0-125); Osmolality Calculated 285 mOsm/kg (285-295); Potassium 4.3 mmol/L (3.5-5.1); Sodium 137 mmol/L (136-145); Troponin I 6.1 ng/L (0.00-60.4)
[2025-02-24 03:43] LABS: INR 0.8; Lactic Acid Reflex 1.4 mmol/L (0.4-2.0); Partial Thromboplastin Time 22.2 Sec (23.9-30.70); Prothrombin Time 9.4 Seconds (9.50-12.1)
--- NOTE | 2025-02-24 04:19 | PC.NURSE ---
Pt resting, sitting upright in bed, CT report back and ERP discussing report and POC for transfer. Pt wanting transfer to [facility].
[2025-02-24] MEDS: HEPARIN SOD/D5W 100 UNITS/ML 25,000 UNITS/250 ML BAG 12 UNITS IV CONT (04:40)
[2025-02-24] MEDS: HEPARIN SODIUM 5,000 UNITS/ML VIAL 5000 UNITS IV PUSH (04:40)
--- NOTE | 2025-02-24 05:00 | PC.NURSE ---
Call back from [facility], after speaking w/ house supv at [facility], pt will have to go to ICU at [facility] where the specialists are located, will await call back again from at [facility] for transfer. Call also made to [facility] for possible transfer to [facility] per ERP request due to possible delays at [facility]. Pt and souse informed on decision.
== END 2025-02-24 05:40 | disposition short-term general hospital (02) ==
PROVIDERS: Emergency Provider Emergency Medicine; PCP Family Medicine
DX: I26.99 Other pulmonary embolism without acute cor pulmonale (principal); R09.02 Hypoxemia; Z87.891 Personal history of nicotine dependence
CPT/HCPCS: 36415; 71275; 80053; 83605; 83690; 83880; 84484; 85025; 85610; 85730; 93005; 96365; 96375; 96376; 99291; J1644; J2270; Q9967

== ENCOUNTER 2025-03-11 08:56 | Outpatient (RCR) | payer OTHER, SELFPAY ==
--- NOTE | 2025-03-11 10:55 | OPREHPOC ---
Outpatient Therapy Plan of Care This is a Multidisciplinary Plan of Care that may contain components documented by all disciplines (PT, OT, and ST.) PT Problem 1 PT Problem #1 Knowledge Deficit PT Goal 1 Goal / Goal Update Pt to be independent in HEP Target Visit 9 PT Problem 2 PT Problem #2 Impaired Functional Mobility PT Goal 1 Goal / Goal Update Pt to report less than or equal to 20% on the NDI. Target Visit 9 PT Problem 3 PT Problem #3 Impaired Range of Motion PT Goal 1 Goal / Goal Update Pt to hav 45 degrees of cervical rotation bilat pt to have 20 degrees of cervical lateral flexion bilat Target Visit 9 PT Problem 4 PT Problem #4 Impaired Strength PT Goal 1 Goal / Goal Update pt to have a 4/5 for cervical flexion pt to have 4+/5 for lower abdominal strength Pulp Machine Operator strength to be at least 72 and equal on both sides pt able to hold a chin tuck for at least 30 sec for deep cervical flexion strength and endurance Target Visit 9
--- NOTE | 2025-03-11 10:55 | PTOPEVAL1 ---
Assessment and note entered by JT File, PT Evaluation Information Assessment Status Evaluation ICD-10 Condition Codes (PT) Cervicalgia M54.2 Onset 02/17/25 Subjective Information Pt reports that she is stiff following her neck fusion on 02/17/25. Pt complains of a tightness between her shoulder blades, but denies any pain. Pt reports that it does not hinder her from most daily activities. Pt reports that sometimes she wakes up in the middle of the night when she goes to roll over. Reported Pain Level Pain Score 0: Self Report Assessment PT Clinical Summary Mrs. Mcgrath is a 59 y/o female who is coming to therapy for s/p ACDF C3-C7 on 02/17/25. Pt was educated in scar massage, posture correction, and HEP. Pt has deficits in cervical and abdominal strength. Pt also has restricted ROM and flexibility in the cervical spine bilat. The pt would benefit from skilled PT to improve cervical strength, abdominal strength, and cervical ROM/ flexibility to improve quality of life and return to prior level of function. Plan of Care Interventions Electrical Stimulation,Hot Pack/Cold Pack,Neuro Re -education,Therapeutic Activities,Therapeutic Exercise PT Services Indicated Yes Treatment Frequency and 3x a week for 9 visits Duration These treatments will address the objective and functional deficits as defined above. The patient will be advanced safely and appropriately in order for the patient to progress towards his/her prior level of function. Additional exercises will be introduced and as well as a comprehensive home exercise program upon discharge, if needed, ?to ensure carryover of functional gains achieved in the clinic. This treatment plan has been reviewed and agreement upon by the patient.
--- NOTE | 2025-03-11 14:43 | PCPTNOTE ---
On 03/11/25, the student, [Lukas Crawley], provided care and completed [facility] documentation on this patient. I have reviewed the student's documentation and agree with the findings.
--- NOTE | 2025-03-19 13:58 | PCPTNOTE ---
On 03/19/25, the student, [Cinda Crawley], provided care and completed [facility] documentation on this patient. I have reviewed the student's documentation and agree with the findings.
--- NOTE | 2025-03-25 10:16 | PCPTNOTE ---
On 03/25/25, the student, [Lukas Crawley], provided care and completed [facility] documentation on this patient. I have reviewed the student's documentation and agree with the findings.
--- NOTE | 2025-04-03 14:44 | OPREHPOC ---
Outpatient Therapy Plan of Care This is a Multidisciplinary Plan of Care that may contain components documented by all disciplines (PT, OT, and ST.) PT Problem 1 PT Problem #1 Knowledge Deficit PT Goal 1 Goal / Goal Update Pt to be independent in HEP Target Visit 9 Progress Partially Met PT Goal 2 Goal / Goal Update continue Target Visit 13 PT Problem 2 PT Problem #2 Impaired Functional Mobility PT Goal 1 Goal / Goal Update Pt to report less than or equal to 20% on the NDI. Target Visit 9 Progress Not Met PT Goal 2 Goal / Goal Update -continue - pt to be able to lift 30lbs floor to waist - pt to be able to lift 20lbs from waist to shoulder Target Visit 13 PT Problem 3 PT Problem #3 Impaired Range of Motion PT Goal 1 Goal / Goal Update Pt to hav 45 degrees of cervical rotation bilat - met pt to have 20 degrees of cervical lateral flexion bilat -partially met (met on the L but not on the R) Target Visit 9 Progress Partially Met PT Goal 2 Goal / Goal Update continue Target Visit 13 PT Problem 4 PT Problem #4 Impaired Strength PT Goal 1 Goal / Goal Update pt to have a 4/5 for cervical flexion -met pt to have 4+/5 for lower abdominal strength -not met Supervisor [employer] strength to be at least 72 and equal on both sides (improved corporate aircraft mechanic strength and almost equal on both sides, but only at 70) pt able to hold a chin tuck for at least 30 sec for deep cervical flexion strength and endurance ( able to hold for 10s, but she felt like it kept her from getting a breath since she can't breath out of her nose) Target Visit 9 PT Goal 2 Goal / Goal Update continue Target Visit 13
--- NOTE | 2025-04-03 14:45 | PCPTNOTE ---
On 04/03/25, the student, [Lukas Crawley], provided care and completed [facility] documentation on this patient. I have reviewed the student's documentation and agree with the findings.
--- NOTE | 2025-04-04 07:02 | OPREHPOC ---
Outpatient Therapy Plan of Care This is a Multidisciplinary Plan of Care that may contain components documented by all disciplines (PT, OT, and ST.) PT Problem 1 PT Problem #1 Knowledge Deficit PT Goal 1 Goal / Goal Update Pt to be independent in HEP Target Visit 9 Progress Partially Met PT Goal 2 Goal / Goal Update continue Target Visit 13 PT Problem 2 PT Problem #2 Impaired Functional Mobility PT Goal 1 Goal / Goal Update Pt to report less than or equal to 20% on the NDI. Target Visit 9 Progress Not Met PT Goal 2 Goal / Goal Update -continue - pt to be able to lift 30lbs floor to waist - pt to be able to lift 20lbs from waist to shoulder Target Visit 13 PT Problem 3 PT Problem #3 Impaired Range of Motion PT Goal 1 Goal / Goal Update Pt to hav 45 degrees of cervical rotation bilat - met pt to have 20 degrees of cervical lateral flexion bilat -partially met (met on the L but not on the R) Target Visit 9 Progress Partially Met PT Goal 2 Goal / Goal Update continue Target Visit 13 PT Problem 4 PT Problem #4 Impaired Strength PT Goal 1 Goal / Goal Update pt to have a 4/5 for cervical flexion -met pt to have 4+/5 for lower abdominal strength -not met Bioanalyst strength to be at least 72 and equal on both sides (improved suppression crew leader strength and almost equal on both sides, but only at 70) pt able to hold a chin tuck for at least 30 sec for deep cervical flexion strength and endurance ( able to hold for 10s, but she felt like it kept her from getting a breath since she can't breath out of her nose) Target Visit 9 PT Goal 2 Goal / Goal Update continue Target Visit 13
--- NOTE | 2025-04-04 07:03 | PTOPREEVAL ---
Assessment and note entered by JT File, PT Evaluation Information Assessment Status Re-evaluation ICD-10 Condition Codes (PT) Cervicalgia M54.2 Onset 02/17/25 Subjective Information Pt reports she went to her MD yesterday and got a cortisone shot. Pt reports that she is feeling much better after the shot. Pt reports that the MD wants her to start strengthening with more weight . Pt reports that she is stiff in the morning. Pt reports that she feels like she has made great improvements since starting PT. Pt reports that she doesn't always do all of her HEP, but she does the stretching a lot. Pt reports that she plans on signing up for a yoga class to help with stretching and getting more active. Pt reports she has trouble doing house/yard work and lifting anything heavy. Reported Pain Level Pain Score 2: Self Report Assessment PT Clinical Summary Madelaine completed her 9th skilled PT visit for p/o cervical fusion C3-7 on 02/17/25. Madelaine has met some of her goals in ROM. However, the pt still has deficits in strength, posture, and ROM. Pt still has high perceived disability on the NDI, and struggles with lifting and house work. Pt is to start strengthening scapular and GH muscles per MD's request. Skilled PT is needed to safely strengthen scapular and GH muscles for functional mobility. Pt would benefit from skilled PT to continue working on deficits, improving quality of life, and meeting functional goals. Plan of Care Interventions Electrical Stimulation,Hot Pack/Cold Pack,Neuro Re -education,Therapeutic Activities,Therapeutic Exercise PT Services Indicated Yes Treatment Frequency and 1x a week for 4 visits Duration These treatments will address the objective and functional deficits as defined above. The patient will be advanced safely and appropriately in order for the patient to progress towards his/her prior level of function. Additional exercises will be introduced and as well as a comprehensive home exercise program upon discharge, if needed, ?to ensure carryover of functional gains achieved in the clinic. This treatment plan has been reviewed and agreement upon by the patient.
--- NOTE | 2025-04-30 09:31 | OPREHPOC ---
Outpatient Therapy Plan of Care This is a Multidisciplinary Plan of Care that may contain components documented by all disciplines (PT, OT, and ST.) PT Problem 1 PT Problem #1 Knowledge Deficit PT Goal 1 Goal / Goal Update Pt to be independent in HEP Target Visit 9 Progress Met PT Goal 2 Goal / Goal Update . Target Visit 13 Progress Met PT Problem 2 PT Problem #2 Impaired Functional Mobility PT Goal 1 Goal / Goal Update Pt to report less than or equal to 20% on the NDI. Target Visit 9 Progress Met PT Goal 2 Goal / Goal Update -continue - pt to be able to lift 30lbs floor to waist. met - pt to be able to lift 20lbs from waist to shoulder. met Target Visit 13 PT Problem 3 PT Problem #3 Impaired Range of Motion PT Goal 1 Goal / Goal Update Pt to hav 45 degrees of cervical rotation bilat - met pt to have 20 degrees of cervical lateral flexion bilat -met Target Visit 9 Progress Met PT Goal 2 Goal / Goal Update . Target Visit 13 PT Problem 4 PT Problem #4 Impaired Strength PT Goal 1 Goal / Goal Update pt to have a 4/5 for cervical flexion -met pt to have 4+/5 for lower abdominal strength -met Waitress strength to be at least 72 and equal on both sides. above 70lbs bilat pt able to hold a chin tuck for at least 30 sec for deep cervical flexion strength and endurance. met Target Visit 9 Progress Partially Met PT Goal 2 Goal / Goal Update . Target Visit 13
--- NOTE | 2025-04-30 09:31 | PTOPDC ---
Assessment and note entered by JT File, PT Evaluation Information Assessment Status Discharge ICD-10 Condition Codes (PT) Cervicalgia M54.2 Onset 02/17/25 Subjective Information patient reports she feels Good today. she reports she has been feeling really good the past couple of weeks. she has had no flare ups of pain, and is compliant with her HEP. Reported Pain Level Pain Score 0: Self Report Assessment PT Clinical Summary mrs. oakes presents to skilled PT with no pain today. she rates her functional performance at 10% deficits per the NDI. she has met or partially met all goals for skilled PT as of this date. she will DC skilled PT and continue with HEP independently at home. Plan of Care PT Services Indicated Yes
== END 2025-04-30 20:00 | disposition home or self-care (01) ==
LOC: CHSPT 08:56
PROVIDERS: Visit Provider Orthopaedic Surgery
DX: Z47.89 Encounter for other orthopedic aftercare (principal); Z48.89 Encounter for other specified surgical aftercare; Z98.1 Arthrodesis status
CPT/HCPCS: 97014; 97110; 97112; 97140; 97161; 97750; G0283

== ENCOUNTER 2025-04-28 10:12 | Outpatient (CLI) | payer OTHER, SELFPAY ==
--- NOTE | ~2025-04-28 | US_ITS ---
Pelvic ultrasound. Clinical History: Abnormal uterine bleeding Technique: Realtime transabdominal and transvaginal scanning of the pelvis was performed. Color flow Doppler and Doppler spectral analysis were performed. Findings: The uterus is anteverted. The endometrial stripe has a thickness of 2 mm. No focal mass is identified. Neither ovary seen. No adnexal mass seen. There is no evidence of free fluid in the cul de sac. Impression: No significant abnormality seen. Neither ovary visualized. Reviewed, dictated and finalized at location . Impression: No significant abnormality seen. Neither ovary visualized.
== END 2025-04-28 10:13 | disposition home or self-care (01) ==
PROVIDERS: PCP Nurse Practitioner Family; Visit Provider Family Medicine
DX: N93.8 Other specified abnormal uterine and vaginal bleeding (principal)
CPT/HCPCS: 76830; 76856

== ENCOUNTER 2025-07-30 10:02 | Outpatient (CLI) | payer OTHER, SELFPAY ==
--- NOTE | ~2025-07-30 | MM_ITS ---
EXAMINATION: MM screening traci BI w ángel HISTORY: Screening TECHNIQUE: Craniocaudal and mediolateral oblique 3-D tomosynthesis images were obtained and synthetic 2-D images were generated. CAD analysis was submitted and interpreted. COMPARISON: Comparison to multiple prior studies sequentially, with oldest reviewed study dated , 07/08/2020 BREAST PARENCHYMAL COMPOSITION: The breasts are heterogeneously dense, which may obscure small masses. FINDINGS: There is no evidence of suspicious mass, calcification, or architectural distortion to suggest malignancy in either breast. IMPRESSION: 1. No mammographic evidence of malignancy. 2. Recommend routine screening mammography in one year. BI-RADS Category 1: Negative Reviewed, dictated and finalized at location B.
== END 2025-07-30 10:03 | disposition home or self-care (01) ==
LOC: MICIMG 10:03
PROVIDERS: PCP Family Medicine; Visit Provider Family Medicine
DX: Z12.31 Encounter for screening mammogram for malignant neoplasm of breast (principal)
CPT/HCPCS: 77063; 77067